=== PATIENT | female | born 1935 | race Caucasian/White ===

== ENCOUNTER 2020-10-31 14:39 | Emergency (ER) | payer OTHER, SELFPAY ==
--- NOTE | 2020-10-31 14:43 | ED_ITS ---
HPI - Psych General Stated Complaint: Crisis Time Seen by Provider: 10/31/20 14:43 Source: patient and EMS Mode of arrival: EMS Limitations: altered mental status (dementia) History of Present Illness complaint: suicidal ideation, feels depressed and anxiety Onset (ago): day(s) (today) Duration: intermittent History of same: Yes Relieving factors: none Exacerbating factors: none Context: other (dementia with behavioral disturbance) Associated psychiatric symptoms: depression and suicidal ideation Associated symptoms: denies other symptoms Treatments prior to arrival: placed on mental health hold Related Data Allergies Allergy/AdvReac Type Severity Reaction Status Date / Time No Known Allergies Allergy Verified 10/31/20 14:43 Review of Systems Review of Systems: ROS unable to be obtained due to dementia [facility] Past Medical History Attestation statement: The following information was validated with the patient. Medical History Dementia Social History Social History (Updated 10/31/20 @ 14:47 by Cortney Alex DO) Smoking Status: Never smoker Use of substances other than those prescribed or required for medical reasons: No Physical Exam Vital Signs: Appearance: Alert. follows commands pleasantly confused. No acute distress. Eyes: Pupils equal, round and reactive to light. ENT: Pharynx normal. Neck: Normal inspection. Neck supple. CVS: Normal heart rate and rhythm. Pulses normal. Respiratory: No respiratory distress. Breath sounds normal. Abdomen: Soft and nontender. Skin: Skin warm and dry. Normal skin color. Normal skin turgor. Extremities: No lower extremity edema. No calf ttp Neuro: Confused at baseline No motor deficit. No sensory deficit. MDM - Psych MDM Narrative Medical decision making narrative: 85 yo female with with longstanding dementia and behavioral issues here with threats of SI, will need basic labs and COVID swab, low susp for self harm in ED
[2020-10-31 15:37] LABS: MANUAL DIFF FLAG NO
[2020-10-31 15:48] LABS: Basophils Percent Auto 0.3 % (0-2); Eosinophils Absolute Auto 0.1 X10*3/uL (0.0-0.4); Eosinophils Percent Auto 1.8 % (0-4); Hematocrit 37.4 % (37-47); Hemoglobin 11.8 g/dl (12.0-16.0); Imm Gran Abs Auto 0.01 X10*3/uL (0.00-0.03); Imm Gran Pct Auto 0.3 % (0.0-0.4); Lymphocytes Absolute Auto 1.4 X10*3/uL (1.2-4.9); Lymphocytes Percent Auto 35.8 % (20-40); Mean Corpuscular HGB Conc 31.6 g/dl (31.0-35.0); Mean Corpuscular Hemoglobin 29.9 pg (27.0-33.0); Mean Corpuscular Volume 94.9 fL (80-98); Mean Platelet Volume 9.3 fL (9.4-12.3); Monocytes Absolute Auto 0.3 X10*3/uL (0.1-1.2); Monocytes Percent Auto 7.8 % (2-11); Neutrophils Absolute Auto 2.2 X10*3/uL (2.0-8.3); Platelet Count 185 X10*3/uL (160-400); Red Blood Count 3.94 X10*6/uL (4.20-5.50); Red Cell Distribution Width 12.3 % (11.0-16.0)
[2020-10-31 16:10] LABS: Alanine Aminotransferase 13 U/L (0-31); Albumin Level 4.1 g/dL (3.5-5.0); Alkaline Phosphatase 63 U/L (39-117); Anion Gap 14 (12-20); Aspartate Amino Transferase 20 U/L (5-31); Bilirubin Direct 0.2 mg/dL (0.0-0.5); Bilirubin Total 0.3 mg/dL (0.0-1.0); Blood Urea Nitrogen 18 mg/dL (9-16); COVID-19 Test Negative (Negative); Calcium 9.6 mg/dL (8.4-10.2); Carbon Dioxide 26 mmol/L (22-29); Chloride 105 mmol/L (96-108); Estimated Glomerular Filt Rate 50; Glucose Random 97 mg/dL (60-115); Potassium 4.4 mmol/l (3.3-5.1); Sodium 141 mmol/L (135-145)
[2020-10-31 18:39] LABS: Magnesium 2.1 mg/dL (1.6-2.6)
== END 2020-11-01 10:01 | disposition still patient (30) ==
LOC: HO.ED 11-01 00:12
PROVIDERS: Emergency Provider Emergency Medicine
DX: F32.9 Major depressive disorder, single episode, unspecified (principal); F01.50 Vascular dementia, unspecified severity, without behavioral disturbance, psychotic disturbance, mood disturbance, and anxiety; R45.851 Suicidal ideations; Z20.828 Contact with and (suspected) exposure to other viral communicable diseases; Z79.899 Other long term (current) drug therapy
CPT/HCPCS: 36415; 80048; 80076; 83735; 85025; 87635; 99283

== ENCOUNTER 2020-10-31 14:58 | Emergency (ER) | payer OTHER, SELFPAY ==
[2020-10-31 15:03] VITALS: BP 130/59; PULSE 71; RESP 16; TEMP 37; O2SAT 98; BMI 36.1
--- NOTE | 2020-10-31 15:09 | ED.PSYCH ---
HPI - Psych General Chief Complaint: Psychiatric Symptoms Stated Complaint: SUICIDAL, NO PLAN Time Seen by Provider: 10/31/20 15:06 Source: patient and EMS Mode of arrival: EMS Limitations: altered mental status (dementia) History of Present Illness HPI Narrative: here from SNF has hx of dementia with behavioral disturbances made some SI statements to staff - sent in on section 12 MD complaint: suicidal ideation Onset (ago): day(s) (today) Duration: intermittent History of same: Yes Relieving factors: none Exacerbating factors: none Context: other (hx of same in past) Associated psychiatric symptoms: suicidal ideation Associated symptoms: denies other symptoms Treatments prior to arrival: placed on mental health hold Related Data Allergies Allergy/AdvReac Type Severity Reaction Status Date / Time No Known Allergies Allergy Verified 10/31/20 15:06 Review of Systems Review of Systems: ROS unable to be obtained due to dementia [facility] Past Medical History Attestation statement: The following information was validated with the patient. 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 Oriented to self and place No acute distress. Eyes: Pupils equal, round and reactive to light. ENT: Pharynx normal. Neck: Normal inspection. Neck supple. CVS: Normal heart rate and rhythm. Pulses normal. Respiratory: No respiratory distress. Breath sounds normal. Abdomen: Soft and nontender. Skin: Skin warm and dry. Normal skin color. Normal skin turgor. Extremities: No lower extremity edema. No calf ttp Neuro: Oriented to self and place, calm and cooperative. No motor deficit. No sensory deficit. Course Course Course Narrative: signed out pending [facility] MDM - Psych MDM Narrative Medical decision making narrative: 85 yo female with dementia and hx of behavioral issues here for reports of making SI statements to staff sent in on section 12 for [facility] consult dispo per results and findings. Discharge Plan Discharge Clinical Impression: Dementia Qualifiers: Dementia type: unspecified type Dementia behavioral disturbance: with behavioral disturbance Qualified Code(s): F03.91 - Unspecified dementia with behavioral disturbance
[2020-10-31 18:30] VITALS: BP 152/66; PULSE 81; RESP 18; TEMP 36.8; O2SAT 100
--- NOTE | 2020-10-31 19:08 | PC.NURSE ---
Used licensed social worker to interview patient about SI. She is confused at times and only able to answer some questions. It was clear that she wanted to harm herself because she is lonely but was not able to verbalize a plan. Staff assigned for observation.
--- NOTE | 2020-10-31 19:38 | PC.NURSE ---
Fax and call made to [facility] at thist time.
--- NOTE | 2020-10-31 20:10 | PC.NURSE ---
[facility] faxed/called/spoke with Nercy/confirmed receipt of referral/ no ETA at this time. Patient confused/tearful, unable to express concern, will continue to monitor.
--- NOTE | 2020-10-31 22:37 | PC.NURSE ---
Patient is evidently disorganized, upset, tearful, and moaning. Refused her HS PO medication, scales inspector called for help no luck patient continued refusing her medication. Will continue to monitor.
--- NOTE | 2020-11-01 07:15 | PC.NURSE ---
Report received from JESSICA Hutchinson. Pt awake, sitting on her bed.
[2020-11-01 08:39] VITALS: BP 96/56; PULSE 71; TEMP 36.2; O2SAT 96
--- NOTE | 2020-11-01 09:19 | PC.NURSE ---
Backroom Associate in- pt offered medications- declined to take them. Pt repeatedly stating 'they will kill me' and 'leave me alone.' Pt reminded that medications are necessary for her health, pt continued to decline them. Pt offered fluids and food w/ systems integration analyst present- pt continued to decline them, repeatedly stating 'leave me alopne.' Attempted to orient pt to place but pt unwilling to listen, requesting to go home.
[2020-11-01 09:52] LABS: Glucose Urine UA NEG (NEG); Leukocyte Esterase Urine TRACE (NEG); Nitrite Urine NEG (NEG); Specific Gravity - Urine 1.025 (1.005-1.025); Urine Blood 2+ (NEG); Urine Ketones NEG (NEG); Urine Protein NEG (NEG-TRACE)
[2020-11-01 09:54] LABS: Appearance Urine CLEAR; Color Urine YELLOW
--- NOTE | 2020-11-01 09:54 | PC.NURSE ---
A Marianna aware that pt is declining medications and food. In to evaluate pt.
[2020-11-01 10:00] VITALS: RESP 16
[2020-11-01 10:11] LABS: Bacteria Urine 1+ /LPF; Hyaline Casts Urine 0-2 /LPF; Mucus Urine 1+ /LPF; Squamous Epithelial Cell Urine TRACE /LPF; WBC Clumps Urine NOTED
[2020-11-01 10:18] LABS: Amphetamine Screen Urine Not Detected (Not Detect); Barbiturates, Urine Not Detected (Not Detect); Benzodiazepines Screen Urine Not Detected (Not Detect); Cannabinoid Screen Urine Not Detected (Not Detect); Cocaine Screen Urine Not Detected (Not Detect); Opiate Screen Urine Not Detected (Not Detect); Phencyclidine Screen Urine Not Detected (Not Detect)
--- NOTE | 2020-11-01 11:59 | PC.NURSE ---
At provider request, pt's emergency contact called w/ bushing and broach operator present. Per contact, Kalpana Mercer, who is pt's niece, pt lived with her and while w/ niece, began to eat non edible items, such as plastic and began to refuse medications. Pt was then transferred to [facility] for care of dementia. Pt has intermittently expressed SI over time. Niece had no suggestions for staff re: helping the pt to accept food or medications.
[2020-11-01 12:00] VITALS: RESP 20
--- NOTE | 2020-11-01 13:08 | PC.NURSE ---
Pt offered lunch and drink. Pt vigorously waves away.
[2020-11-01 14:00] VITALS: RESP 20
--- NOTE | 2020-11-01 14:55 | PC.NURSE ---
Pt out in common area- currently sipping on water, eating osvaldo crackers. Appears a little less agitated.
--- NOTE | 2020-11-01 15:54 | PC.NURSE ---
Pt continues to be less agitated, ate the osvaldo crackers but did not accept a turkey sandwich as offered.
[2020-11-01 16:14] VITALS: BP 123/61; PULSE 94; RESP 16; TEMP 36.8; O2SAT 100
--- NOTE | 2020-11-01 16:37 | PC.NURSE ---
pt resting, resp unlabored.
[2020-11-01 18:00] VITALS: RESP 24
--- NOTE | 2020-11-01 18:48 | PC.NURSE ---
Assisted pt to toilet, but pt unable top void. Pt ate a minimal amount of her dinner. Pt currently in hallway, calling out. Unable to console.
[2020-11-01] MEDS: traZODone HCL 50 MG TABLET PO (20:35)
[2020-11-01] MEDS: QUEtiapine Fumarate 25 MG TABLET 12.5 MG PO (20:35)
[2020-11-01] MEDS: Melatonin 3 MG TABLET PO (20:35)
--- NOTE | 2020-11-01 21:36 | PC.NURSE ---
Patient compliant with HS PO medication, needed lot of prompting, patient has no insight, appetite poor, hydrating not well, patient is on constant supervision for fall risk, will continue to monitor.
[2020-11-02 08:11] VITALS: BP 122/56; PULSE 67; TEMP 36.4; O2SAT 97
[2020-11-02] MEDS: FLUoxetine HCl 20 MG CAPSULE 40 MG PO (10:22)
[2020-11-02] MEDS: Clopidogrel Bisulfate 75 MG TABLET PO (10:22)
[2020-11-02] MEDS: Aspirin Enteric Coated 81 MG TABLET.DR PO (10:22)
[2020-11-02] MEDS: Cholecalciferol (Vitamin D3) 25 MCG TABLET PO (10:22)
--- NOTE | 2020-11-02 11:25 | PC.NURSE ---
patient currently sleeping in room, will continue to monitor.
--- NOTE | 2020-11-02 15:10 | PC.NURSE ---
Report received. Pt asleep in bed at current, no signs of distress, respirations even and unlabored.
[2020-11-02 16:57] VITALS: BP 121/52; PULSE 68; RESP 18; TEMP 36.1; O2SAT 95
[2020-11-02 17:51] LABS: COVID-19 Test Negative (Negative); IDNOW Serial# 9DD0AD1C
--- NOTE | 2020-11-02 19:38 | PC.NURSE ---
Patient mood seems much pleasant, family came to visit, Jennifer Mercer [phone], and Niece's daughter Toma Swanson, , updated patient status as approved by patient, family advised to contact [facility] and provided [facility] business car. Currently in bed seems resting, will continue to monitor.
[2020-11-02 21:45] VITALS: BP 154/68; PULSE 60; RESP 18; TEMP 36.6; O2SAT 97
[2020-11-03 06:21] VITALS: RESP 17
--- NOTE | 2020-11-03 06:59 | PC.NURSE ---
Report recieved. Pt currently sleeping, respirations even and unlabored, in no apparent distress. Pt is inpatient bedsearch.
[2020-11-03 09:06] VITALS: BP 110/50; PULSE 80; RESP 16; TEMP 36.8; O2SAT 95
[2020-11-03] MEDS: Aspirin Enteric Coated 81 MG TABLET.DR PO (09:07)
[2020-11-03] MEDS: FLUoxetine HCl 20 MG CAPSULE 40 MG PO (09:07)
--- NOTE | 2020-11-03 12:28 | MHC.CARE ---
T/w met with [facility] clinician (Milla) after the MSU today. Pts dispo was changed from GeriPsych to SNF bedsearch to be done by CM now. A consult was placed this morning for medication considerations which will remain for the continuity for her return to [facility] or if needed in her bedsearch for SNF placement as pt arrived to [facility] from a SNF placement ie [facility]. ED provider aware of this change and on board. T/w alerted CM of this referral.
--- NOTE | 2020-11-03 13:10 | MHC.CM.ED ---
Patient was in ER due to SI. She has been cleared by [facility] and will return to [facility]. [facility] aware. However, [facility] eval is needed in order for patient to return. Continue to monitor for d/c needs.
--- NOTE | 2020-11-03 16:06 | PC.NURSE ---
[facility] contacted for second time to request copy of eval to be faxed to emergency room.
[2020-11-03 16:56] VITALS: BP 110/66; PULSE 74; RESP 20; TEMP 36.4; O2SAT 95
--- NOTE | 2020-11-03 17:53 | P.CNPS_ITS ---
History of Present Illness Date of Service: 11/03/2020 Chief Complaint: SUICIDAL, NO PLAN Reason for Consult: medication recommendations Requesting physician: Tricia Simms Discussed with referring provider: No Sources of Information: patient interviewed, chart reviewed and crisis/core team assessment reviewed HPI Narrative: Patient is an 85 year old St Helen[place] speaking female with history of dementia currently in area of ED after reportedly making suicidal statements at the SNF where she resides Consult requested to assess for possible medication changes Patient seen in room 2 of area ED. Pleasantly confused and engaged in interview Notes reviewed, patient has been in behavioral control while in ED. Easily redirectable, taking medications--at times with some gentle encouragement, but has been compliant overall. Past Psychiatric History: unknown Medical Evaluation Reviewed: Yes Review of Systems Review of Systems Yes all other systems are reviewed and are negative [facility] Medical History Dementia Diagnostics Vital Signs (24Hr): Vital Signs - 24 hr 11/02/20 21:45 11/03/20 06:21 11/03/20 09:06 Temperature 98 F 98.3 F Pulse Rate 60 80 Respiratory Rate 18 17 16 Blood Pressure 154/68 H 110/50 L Pulse Oximetry 97 95 11/03/20 16:56 Temperature 97.5 F Pulse Rate 74 Respiratory Rate 20 Blood Pressure 110/66 Pulse Oximetry 95 Body Mass Index 36.1 Labs Labs: Laboratory Results - last 48 hr 11/02/20 17:08 COVID-19 (MYRIAM) Negative COVID-19 Clin Com See Note Mental Status Exam Mental Status Exam Patient Appearance: Appropriate Patient Orientation: Person Level of Consciousness: Awake, Disoriented and Alert Patient Behavior: Appropriate and Talkative Mood Description: Calm Affect Description: Calm Ability to Follow Directions: Good Speech Pattern: Clear Hallucinations: None Thought Process: Distracted Thought Content: positive for Longs Judgement: Poor Medications Medications Current Medications Generic Name Dose Route Start Last Admin Trade Name Freq PRN Reason Stop Dose Admin Acetaminophen 650 mg 10/31/20 22:02 Acetaminophen 325 Mg Tablet PO Q4H PRN Pain, Mild Aspirin 81 mg 11/01/20 09:00 11/03/20 09:07 Aspirin Enteric Coated 81 Mg Tablet.Dr PO 81 mg DAILY ATMIE Administration Bisacodyl 10 mg 10/31/20 22:02 Bisacodyl 10 Mg Supp.Rect ID DAILY PRN Constipation Clopidogrel Bisulfate 75 mg 11/01/20 09:00 11/03/20 09:20 Clopidogrel Bisulfate 75 Mg Tablet PO Not Given DAILY TAMIE Fluoxetine HCl 40 mg 11/01/20 09:00 11/03/20 09:07 Fluoxetine Hcl 20 Mg Capsule PO 40 mg DAILY TAMIE Administration Loperamide HCl 2 mg 10/31/20 22:05 Loperamide Hcl 2 Mg Capsule PO TID PRN Diarrhea Melatonin 3 mg 10/31/20 22:15 11/02/20 21:54 Melatonin 3 Mg Tablet PO Not Given BEDTIME TAMIE Nystatin 1 appl 10/31/20 22:02 Nystatin Powder 15 Gm Bottle TOPICAL QSHIFT PRN Rash Protocol Pharmacy Consult 1 each 10/31/20 15:06 Consult Rx Perform Med Rec MISCELLANE ONCE PRN Consult order Quetiapine Fumarate 12.5 mg 10/31/20 22:15 11/02/20 21:54 Quetiapine Fumarate 25 Mg Tablet PO Not Given BEDTIME TAMIE Senna 17.2 mg 10/31/20 22:02 Sennosides 8.6 Mg Tablet PO DAILY PRN Constipation Sodium Biphosphate/Sodium Phosphate 118 ml 10/31/20 22:02 Sodium Phosphate,[place]-Dibasic 133 Ml Enema ID DAILY PRN Constipation Trazodone HCl 50 mg 10/31/20 22:15 11/02/20 21:54 Trazodone Hcl 50 Mg Tablet PO Not Given BEDTIME TAMIE Vitamin D 25 mcg 11/01/20 09:00 11/03/20 09:21 Cholecalciferol (Vitamin D3) 25 Mcg Tablet PO Not Given DAILY [facility] Allergies Allergies Allergy/AdvReac Type Severity Reaction Status Date / Time No Known Allergies Allergy Verified 11/01/20 08:12 Assessment & Plan Assessment & Plan (1) Dementia: Qualifiers: Dementia behavioral disturbance: with behavioral disturbance Dementia type: unspecified type Qualified Code(s): F03.91 - Unspecified dementia with behavioral disturbance Status: Acute Code(s): F03.90 - Unspecified dementia without behavioral disturbance Recommendations: based on chart review, patient interview and collateral from RN in area, no medication recommendations at this time Greater than 50% of the session was spent on counseling and/or coordination of care
--- NOTE | 2020-11-03 18:01 | MHC.CARE ---
CARE Team, at the request of [facility] RN, Victor Hugo, assists with discharge planning, as CM is not available. Earlier today CM noted that a plan was in place for pt to return to [facility], however this usp has not heard of pt. Pt resides at [facility], and they were unaware of plan for pt to return this evening. Alaina, a nursing group art supervisor there reported that cooperative education coordinator is not available and [facility] CM will need to reach out to her tomorrow to coordinate pt's return.
--- NOTE | 2020-11-03 19:00 | PC.NURSE ---
REPORT RECEIVED FROM JESSICA BUTT. PATIENT SLEEPING COMFORTABLY AT THIS TIME, NO ACUTE DISTRESS NOTED. WILL CONTINUE TO MONITOR. CASE MANAGEMENT.
--- NOTE | 2020-11-03 20:27 | PC.NURSE ---
THIS RN ATTEMPTED TO MEDICATE PATIENT WITH SCHEDULED MEDICATIONS, HOWEVER PATIENT REFUSED. RAND TACKER AT BEDSIDE ATTEMPTING TO HELP THIS RN. PATIENT STATES NO, I'M NOT TAKING ANY MORE PILLS, I ALREADY TOOK SOME TODAY. I HAVE ASPIRIN WITH ME. I'M NOT TAKING ANYMORE . OFFERED FOOD AND BEVERAGES AND REFUSED ALL OF THESE WELL. WILL ATTEMPT TO MEDICATE AT A LATER TIME. PT INSISTS ON SITTING IN CHAIR AND TO BE LEFT ALONE AT THIS TIME. WILL CONTINUE TO MONITOR.
[2020-11-03] MEDS: traZODone HCL 50 MG TABLET PO (20:50)
[2020-11-03] MEDS: QUEtiapine Fumarate 25 MG TABLET 12.5 MG PO (20:50)
[2020-11-03 21:03] VITALS: BP 120/63; PULSE 65; RESP 18; TEMP 36.1; O2SAT 97
--- NOTE | 2020-11-03 21:21 | PC.NURSE ---
PATIENT'S NIECE (GERTRUDE JONES) CALLED THIS RN, REQUESTING UPDATES REGARDING PATIENT. GERTRUDE WISHES TO SPEAK WITH CASE MANAGEMENT/MIRROR SILVERER REGARDING PATIENT'S CARE PLAN, WITH TRUCK DRIVER SUPERVISOR NECESSARY...NEITHER PATIENT OR FAMILY SPEAK [place], EGYPTIAN ONLY. GERTRUDE LEFT MULTIPLE PHONE NUMBERS TO CONTACT: PRIMARY #: [phone] SECONDARY #: [phone]
--- NOTE | 2020-11-03 21:30 | PC.NURSE ---
PATIENT TOOK SCHEDULED MEDICATIONS ORDERED AT 20:50 WITH ASSISTANCE FROM MIMI HUANG/ANN. PATIENT REFUSED MELATONIN ONLY. PATIENT NOW SLEEPING COMFORTABLY, NO ACUTE DISTRESS NOTED. WILL CONTINUE TO MONITOR.
[2020-11-03 23:23] VITALS: RESP 17
--- NOTE | 2020-11-04 04:03 | PC.NURSE ---
PATIENT SLEEPING AT THIS TIME. NO ACUTE DISTRESS NOTED. WILL CONTINUE TO MONITOR.
[2020-11-04 04:04] VITALS: RESP 18
[2020-11-04 06:00] VITALS: RESP 16
--- NOTE | 2020-11-04 07:03 | PC.NURSE ---
Report received. Pt currently sleeping, respirations even and unlabored, in no apparent distress. Pt is case management placement.
--- NOTE | 2020-11-04 08:09 | PC.NURSE ---
Pt was noted to have a bucket in her room this morning, bucket was removed, pt then urinated on the floor. Pt redirected to use the bathroom.
[2020-11-04 09:03] VITALS: BP 127/67; PULSE 57; TEMP 37.1; O2SAT 100
[2020-11-04] MEDS: Aspirin Enteric Coated 81 MG TABLET.DR PO (09:23)
[2020-11-04] MEDS: Cholecalciferol (Vitamin D3) 25 MCG TABLET PO (09:23)
[2020-11-04] MEDS: Clopidogrel Bisulfate 75 MG TABLET PO (09:23)
[2020-11-04] MEDS: FLUoxetine HCl 20 MG CAPSULE 40 MG PO (09:23)
--- NOTE | 2020-11-04 10:47 | MHC.CM.ED ---
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 Clinical updates sent via [employer]. Attempted to reachCharisse via telephone at [phone] and [phone] with the help of a telephone truck technician. Left messages at both numbers requesting a call back. Anticipate patient will return to [facility] today. Continue to monitor for d/c needs.
--- NOTE | 2020-11-04 11:48 | MHC.CM.ED ---
Per Piper at [facility], patient can leave ER at 130pm. [facility] booked. Med nec with chart. Patient, Dwaine HAULAGE BOSS and Victor Hugo RN aware. Spoke with patient's niece,Charisse via telephone at [phone] with the help of the telephone hourly sign language interpreter. Gradyolredyllan verbalizes understanding and is agreeable for patient to return. Continue to monitor for d/c needs.
[2020-11-04] MEDS: Acetaminophen 325 MG TABLET 650 MG PO (12:38)
== END 2020-11-04 13:48 | disposition skilled nursing facility (03) ==
PROVIDERS: Emergency Medicine; Nurse Practitioner Primary Care; Emergency Provider Emergency Medicine; PCP Internal Medicine
DX: F03.91 Unspecified dementia, unspecified severity, with behavioral disturbance (principal); R45.851 Suicidal ideations; Z20.828 Contact with and (suspected) exposure to other viral communicable diseases; I10 Essential (primary) hypertension
CPT/HCPCS: 36415; 80307; 81001; 87086; 87635; 99282; 99285

== ENCOUNTER 2020-11-28 04:07 | Emergency (ER) | payer OTHER, SELFPAY ==
--- NOTE | ~2020-11-28 | CT_ITS ---
EXAMINATION: CT HEAD WITHOUT CONTRAST CLINICAL INFORMATION: Headache. COMPARISON: None. TECHNIQUE: Contiguous helical images of the brain were obtained without IV contrast. Multiplanar reconstructions were performed. DLP: 724 mGy-cm. FINDINGS: There are no pathologic extra-axial fluid collections. The lateral, third, fourth ventricles are mildly prominent, though age-appropriate and concordant with the appearance of the sulci. There is no evidence for acute intraparenchymal hemorrhage or infarct. There is neither mass nor mass effect. 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 There is no shift of midline structures. The paranasal sinuses and mastoid air cells are clear. There are no osseous lesions. CT/CT head/brain wo con IMPRESSION: No evidence for acute intracranial injury. Automated exposure control (Care Dose) Adjustment of the mA and/or kv according to patient size (this includes techniques or standardized protocols for targeted exams where dose is matched to indication / reason for exam; i.e. extremities or head).
--- NOTE | ~2020-11-28 | XR_ITS ---
EXAMINATION: CHEST 1 VIEW CLINICAL INFORMATION: Chest pain. COMPARISON: None. TECHNIQUE: An AP view of the chest is provided. FINDINGS: The cardiac silhouette is not enlarged. The mediastinal and hilar contours are unremarkable. There are neither pleural effusions nor pneumothoraces. There is a faint focus of hazy opacification within the right midlung. The osseous structures are unremarkable. XR/XR chest 1V IMPRESSION: Seen nonspecific focus of hazy opacification within the right midlung. Recommendation is for a followup chest series to be obtained following treatment and/or resolution of symptoms to assure resolution of this appearance.
[2020-11-28 04:18] VITALS: BP 163/93; BP 164/68; PULSE 68; PULSE 72; RESP 20; TEMP 36.6; O2SAT 98; BMI 29.8
--- NOTE | 2020-11-28 04:25 | PC.NURSE ---
MD at bedside for primary eval. natural resource technician at bedside for EKG. Plan for Covid swab and labs.
--- NOTE | 2020-11-28 04:28 | ECG_ITS ---
Test Reason : ABD PAIN Blood Pressure : / mmHG Vent. Rate : 064 BPM Atrial Rate : 064 BPM P-R Int : 162 ms QRS Dur : 112 ms QT Int : 436 ms P-R-T Axes : 032 -42 124 degrees QTc Int : 449 ms Normal sinus rhythm Left axis deviation Left ventricular hypertrophy with repolarization abnormality Abnormal ECG No previous ECGs available Referred By: Brian Warren Electronically Signed By:MARIALUISA SEN
[2020-11-28 04:56] LABS: Basophils Percent Auto 0.2 % (0-2); Eosinophils Absolute Auto 0.1 X10*3/uL (0.0-0.4); Eosinophils Percent Auto 1.7 % (0-4); Hemoglobin 12.7 g/dl (12.0-16.0); Imm Gran Abs Auto 0.01 X10*3/uL (0.00-0.03); Imm Gran Pct Auto 0.2 % (0.0-0.4); Lymphocytes Absolute Auto 2.4 X10*3/uL (1.2-4.9); Mean Corpuscular HGB Conc 31.8 g/dl (31.0-35.0); Mean Corpuscular Hemoglobin 29.5 pg (27.0-33.0); Mean Corpuscular Volume 92.8 fL (80-98); Mean Platelet Volume 9.1 fL (9.4-12.3); Monocytes Absolute Auto 0.3 X10*3/uL (0.1-1.2); Monocytes Percent Auto 6.6 % (2-11); Neutrophils Absolute Auto 1.9 X10*3/uL (2.0-8.3); Neutrophils Percent Auto 40.3 % (45-73); Platelet Count 199 X10*3/uL (160-400); Red Blood Count 4.31 X10*6/uL (4.20-5.50); Red Cell Distribution Width 12.5 % (11.0-16.0); White Blood Count 4.7 X10*3/uL (4.8-10.8)
[2020-11-28 04:57] LABS: MANUAL DIFF FLAG NO
--- NOTE | 2020-11-28 05:01 | PC.NURSE ---
CXR at bedside.
[2020-11-28 05:09] LABS: COVID-19 Test Negative (Negative)
--- NOTE | 2020-11-28 05:10 | ED_ITS ---
HPI - General Adult General Chief complaint: General Medical Stated complaint: Chest pain Time Seen by Provider: 11/28/20 04:27 Source: patient, EMS and medical interpreter Mode of arrival: EMS Limitations: no limitations History of Present Illness HPI narrative: 85-year-old female in [facility] with history of d poly in the emergency department patient has nonspecific generalized body ache and headache, patient declined chest pain or recent complaint of chest pain. According to [facility] nurse report patient around 03:00 o'clock in the morning she was complaining of chest pain and headache. Patient is unable to confirm the history because history of dementia. Overall patient appears in no distress, patient is talking about her hope to go back home [place] and enjoys a nice country and the nice weather. Related Data Home Medications Medication Instructions Recorded Confirmed acetaminophen 650 mg PO Q4H PRN 10/31/20 10/31/20 aspirin 81 mg PO DAILY 10/31/20 10/31/20 bisacodyl 10 mg PA DAILY PRN 10/31/20 10/31/20 cholecalciferol (vitamin D3) 25 mcg PO DAILY 10/31/20 10/31/20 clopidogrel 75 mg PO DAILY 10/31/20 10/31/20 fluoxetine 40 mg PO DAILY 10/31/20 10/31/20 loperamide 2 mg PO TID PRN 10/31/20 10/31/20 melatonin 5 mg PO BEDTIME 10/31/20 10/31/20 nystatin 1 appl TOPICAL QSHIFT PRN 10/31/20 10/31/20 quetiapine 12.5 mg PO BEDTIME 10/31/20 10/31/20 sennosides [senna] 17.2 mg PO DAILY PRN 10/31/20 10/31/20 sodium phosphates [Fleet Enema] 118 ml PA DAILY PRN 10/31/20 10/31/20 trazodone 50 mg PO BEDTIME 10/31/20 10/31/20 Allergies Allergy/AdvReac Type Severity Reaction Status Date / Time No Known Allergies Allergy Verified 11/01/20 08:12 Review of Systems Review of Systems: Yes Unobtainable due to mental condition (Chronic dementia.) [facility] Past Medical History Medical History 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 Blood pressure hypertensive. Heart rate normal. Respiration rate normal. Temperature normal. Oxygen saturation normal. Appearance: Alert, No acute distress. Head: Normal external exam. Normocephalic. Atraumatic. No Hendrickson signs noted. No raccoon eyes noted Eyes: PERRLA. EOMI. Conjunctiva and sclera normal. Eyelids normal. ENT: TM's Normal. Pharynx normal. Uvula midline. Moist mucous membranes. No trismus noted. No drooling noted. No muffled voice noted. Neck: Normal inspection. Neck supple. FROM. No adenopathy. Thyroid Normal. No meningeal signs. No neck mass noted. CVS: Normal heart rate and rhythm. Heart sound normal. No murmurs noted. Pulses normal throughout. Respiratory: No respiratory distress. Painless inspiration. Breath sounds normal. No wheezes/rales/rhonchi noted. Chest nontender. No accessory muscle usage noted or decreased air movement noted. Abdomen: Soft and nontender. Bowel sounds normal in all 4 quadrants. No distention noted. No organomegaly noted. No visible injury noted. Back: No CVA tenderness. Full range of motion noted. Skin: Skin warm and dry. Normal skin color. Normal skin turgor. No rashes/lesions/lacerations noted. Extremities: No lower extremity edema. Extremities exhibit normal range of motion. Extremities nontender. Neuro: No motor deficit. No sensory deficit. Medical Decision Making Lab Data Lab results reviewed: Yes I reviewed the patient's lab results. Result diagrams: 11/28/20 04:37 11/28/20 04:37 Labs: Lab Results 11/28/20 11/28/20 11/28/20 Range/Units 04:37 04:37 04:37 WBC 4.7 L (4.8-10.8) X10*3/uL RBC 4.31 (4.20-5.50) X10*6/uL Hgb 12.7 (12.0-16.0) g/dl Hct 40.0 (37-47) % MCV 92.8 (80-98) fL MCH 29.5 (27.0-33.0) pg MCHC 31.8 (31.0-35.0) g/dl RDW 12.5 (11.0-16.0) % Plt Count 199 (160-400) X10*3/uL MPV 9.1 L (9.4-12.3) fL Immature Gran % (Auto) 0.2 (0.0-0.4) % Neut % (Auto) 40.3 L (45-73) % Lymph % (Auto) 51.0 H (20-40) % [place] % (Auto) 6.6 (2-11) % Eos % (Auto) 1.7 (0-4) % Baso % (Auto) 0.2 (0-2) % Lymph # (Auto) 2.4 (1.2-4.9) X10*3/uL [place] # (Auto) 0.3 (0.1-1.2) X10*3/uL Eos # (Auto) 0.1 (0.0-0.4) X10*3/uL Baso # (Auto) 0.0 (0.0-0.2) X10*3/uL Abs Immat Gran (auto) 0.01 (0.00-0.03) X10*3/uL Absolute Neuts (auto) 1.9 L (2.0-8.3) X10*3/uL Absolute Nucleated RBC 0.000 (0.0-0.012) X10*3/uL Nucleated RBC % (auto) 0.0 (0.0-0.2) /100WBC Sodium 140 (135-145) mmol/L Potassium 4.2 (3.3-5.1) mmol/L Chloride 107 (96-108) mmol/L Carbon Dioxide 24 (22-29) mmol/L Anion Gap 13 (12-20) BUN 21 H (9-16) mg/dL Creatinine 1.03 (0.5-1.4) mg/dL Estim Creat Clear Calc 35.3 Estimated GFR 51 Random Glucose 84 (60-115) mg/dL Calcium 9.3 (8.4-10.2) mg/dL Total Bilirubin 0.4 (0.0-1.0) mg/dL Direct Bilirubin 0.2 (0.0-0.5) mg/dL AST 17 (5-31) U/L ALT 10 (0-31) U/L Alkaline Phosphatase 68 (39-117) U/L Troponin I High Sens 22.2 H (<3.5-17.0) ng/L Total Protein 7.0 (6.5-8.0) g/dL Albumin 3.9 (3.5-5.0) g/dL Lipase 19 (8-78) U/L Urine Color Urine Appearance Urine pH (5.0-8.0) Ur Specific [place] (1.005-1.025) Urine Protein (NEG-TRACE) MG/DL Urine Glucose (UA) (NEG) MG/DL Urine Ketones (NEG) MG/DL Urine Blood (NEG) Urine Nitrite (NEG) Ur Leukocyte Esterase (NEG) COVID-19 (MYRIAM) (Negative) COVID-19 Clin Com 11/28/20 11/28/20 Range/Units 04:37 05:36 WBC (4.8-10.8) X10*3/uL RBC (4.20-5.50) X10*6/uL Hgb (12.0-16.0) g/dl Hct (37-47) % MCV (80-98) fL MCH (27.0-33.0) pg MCHC (31.0-35.0) g/dl RDW (11.0-16.0) % Plt Count (160-400) X10*3/uL MPV (9.4-12.3) fL Immature Gran % (Auto) (0.0-0.4) % Neut % (Auto) (45-73) % Lymph % (Auto) (20-40) % [place] % (Auto) (2-11) % Eos % (Auto) (0-4) % Baso % (Auto) (0-2) % Lymph # (Auto) (1.2-4.9) X10*3/uL [place] # (Auto) (0.1-1.2) X10*3/uL Eos # (Auto) (0.0-0.4) X10*3/uL Baso # (Auto) (0.0-0.2) X10*3/uL Abs Immat Gran (auto) (0.00-0.03) X10*3/uL Absolute Neuts (auto) (2.0-8.3) X10*3/uL Absolute Nucleated RBC (0.0-0.012) X10*3/uL Nucleated RBC % (auto) (0.0-0.2) /100WBC Sodium (135-145) mmol/L Potassium (3.3-5.1) mmol/L Chloride (96-108) mmol/L Carbon Dioxide (22-29) mmol/L Anion Gap (12-20) BUN (9-16) mg/dL Creatinine (0.5-1.4) mg/dL Estim Creat Clear Calc Estimated GFR Random Glucose (60-115) mg/dL Calcium (8.4-10.2) mg/dL Total Bilirubin (0.0-1.0) mg/dL Direct Bilirubin (0.0-0.5) mg/dL AST (5-31) U/L ALT (0-31) U/L Alkaline Phosphatase (39-117) U/L Troponin I High Sens (<3.5-17.0) ng/L Total Protein (6.5-8.0) g/dL Albumin (3.5-5.0) g/dL Lipase (8-78) U/L Urine Color YELLOW Urine Appearance CLEAR Urine pH 6.0 (5.0-8.0) Ur Specific [place] 1.020 (1.005-1.025) Urine Protein NEG (NEG-TRACE) MG/DL Urine Glucose (UA) NEG (NEG) MG/DL Urine Ketones NEG (NEG) MG/DL Urine Blood 2+ H (NEG) Urine Nitrite NEG (NEG) Ur Leukocyte Esterase NEG (NEG) COVID-19 (MYRIAM) Negative (Negative) COVID-19 Clin Com See Note Imaging Data Chest x-ray: Radiologist's impression: The cardiac silhouette is not enlarged. The mediastinal and hilar contours are unremarkable. There are neither pleural effusions nor pneumothoraces. There is a faint focus of hazy opacification within the right midlung. The osseous structures are unremarkable. CT scan - head: Radiologist's impression: No evidence for acute intracranial injury. ECG Data Interpretation: Normal sinus rhythm at 64 beats per minute, left axis deviation, LVH, diffuse T-wave flattening and inversion appear nonspecific, unable to obtain old EKG. Discharge Plan Discharge Clinical Impression: Dementia, Headache, Chest pain Instructions: Chest Pain (ED), General Headache (ED) Prescriptions: No Action acetaminophen 325 mg Tablet 650 mg PO Q4H PRN (Reason: Pain, Mild) RF: 0 loperamide 2 mg Tablet 2 mg PO TID PRN (Reason: Diarrhea) RF: 0 clopidogrel 75 mg Tablet 75 mg PO DAILY RF: 0 aspirin 81 mg Tablet,Delayed Release (Dr/Ec) 81 mg PO DAILY RF: 0 bisacodyl 10 mg Suppository 10 mg PA DAILY PRN (Reason: Constipation) RF: 0 Fleet Enema 19-7 gram/118 mL Enema 118 ml PA DAILY PRN (Reason: Constipation) RF: 0 nystatin 100,000 unit/gram Powder 1 appl TOPICAL QSHIFT PRN (Reason: Rash) RF: 0 cholecalciferol (vitamin D3) 25 mcg (1,000 unit) Capsule 25 mcg PO DAILY RF: 0 melatonin 5 mg Tablet 5 mg PO BEDTIME RF: 0 quetiapine 25 mg Tablet 12.5 mg PO BEDTIME RF: 0 fluoxetine 40 mg Capsule 40 mg PO DAILY RF: 0 sennosides [senna] 8.6 mg Tablet 17.2 mg PO DAILY PRN (Reason: Constipation) RF: 0 trazodone 50 mg Tablet 50 mg PO BEDTIME RF: 0 Referrals: Physician,Unknown [Primary Care Provider] - 2 days
--- NOTE | 2020-11-28 05:11 | PC.NURSE ---
Pt returns from CT on hospital bed without incident.
[2020-11-28 05:23] LABS: Troponin-I High Sensitivity 22.2 ng/L (<3.5-17.0)
[2020-11-28 05:24] LABS: Alanine Aminotransferase 10 U/L (0-31); Albumin Level 3.9 g/dL (3.5-5.0); Alkaline Phosphatase 68 U/L (39-117); Anion Gap 13 (12-20); Aspartate Amino Transferase 17 U/L (5-31); Bilirubin Direct 0.2 mg/dL (0.0-0.5); Bilirubin Total 0.4 mg/dL (0.0-1.0); Blood Urea Nitrogen 21 mg/dL (9-16); Calcium 9.3 mg/dL (8.4-10.2); Carbon Dioxide 24 mmol/L (22-29); Chloride 107 mmol/L (96-108); Creatinine Clr Calc Pharmacy 35.3; Estimated Glomerular Filt Rate 51; Glucose Random 84 mg/dL (60-115); Lipase 19 U/L (8-78); Potassium 4.2 mmol/L (3.3-5.1); Sodium 140 mmol/L (135-145)
[2020-11-28 05:31] VITALS: BP 157/73; PULSE 69; RESP 16
[2020-11-28 05:42] LABS: Appearance Urine CLEAR; Color Urine YELLOW; Glucose Urine UA NEG (NEG); Leukocyte Esterase Urine NEG (NEG); Nitrite Urine NEG (NEG); Urine Blood 2+ (NEG); Urine Ketones NEG (NEG); Urine Protein NEG (NEG-TRACE)
--- NOTE | 2020-11-28 05:42 | PC.NURSE ---
UA obtained via straight cath. UA sent for analysis. Pt resting in bed, VSS at this time. Plan for 0745 Troponin. Continue to monitor.
[2020-11-28 05:47] LABS: WBC Urine 0-2 /HPF (0-4)
[2020-11-28 05:48] LABS: Bacteria Urine TRACE /LPF; Squamous Epithelial Cell Urine TRACE /LPF
--- NOTE | 2020-11-28 06:27 | PC.NURSE ---
SNF updated regarding pt condition and plan of care.
[2020-11-28 06:40] VITALS: BP 151/72; PULSE 62; RESP 20; O2SAT 94
[2020-11-28 07:42] VITALS: BP 158/70; PULSE 64; RESP 16; O2SAT 95
[2020-11-28 08:31] LABS: Troponin-I High Sensitivity 22.7 ng/L (<3.5-17.0)
--- NOTE | 2020-11-28 08:59 | PC.NURSE ---
report given to Nasima at [facility], pt to return back to [facility]
== END 2020-11-28 09:50 | disposition skilled nursing facility (03) ==
PROVIDERS: Emergency Provider Emergency Medicine
DX: R07.9 Chest pain, unspecified (principal); R51.9 Headache, unspecified; F03.90 Unspecified dementia, unspecified severity, without behavioral disturbance, psychotic disturbance, mood disturbance, and anxiety; Z20.822 Contact with and (suspected) exposure to COVID-19; I10 Essential (primary) hypertension
CPT/HCPCS: 36415; 70450; 71045; 80048; 80076; 81001; 83690; 84484; 85025; 87635; 93005; 99284

== ENCOUNTER 2022-04-26 17:39 | Emergency (ER) | payer OTHER, SELFPAY ==
--- NOTE | ~2022-04-26 | XR_ITS ---
EXAMINATION: XR HIP, LEFT CLINICAL INFORMATION: Left hip pain COMPARISON: None TECHNIQUE: Two views of the left hip. FINDINGS: Bones and soft tissues are normal. No fracture. Alignment is anatomic. Hip joint space is maintained. XR/XR hip LT w PEL1V IMPRESSION: Unremarkable left hip exam.
--- NOTE | ~2022-04-26 | CT_ITS ---
EXAMINATION: CT HEAD WITHOUT CONTRAST CLINICAL INFORMATION: Fall and head injury. COMPARISON: CT brain 11/28/2020. TECHNIQUE: Contiguous axial imaging was performed from the skull base to vertex without intravenous administration of contrast. This CT examination was performed using dose optimization techniques as appropriate, variously including the following: *Automated exposure control *Adjustment of mA and/or kV according to patient size (this includes techniques or standardized protocols for targeted exams where dose is matched to indication/reason for exam; i.e. extremities or head) *Use of iterative reconstruction technique DLP: 1258 mGy-cm FINDINGS: There is an acute localized hemorrhage of the right posterior quadrigeminal cistern on axial image 08/02. There is no mass effect. There are no additional areas of hyperdensity to suspect additional bleed.. The ventricles are are enlarged in size and so other cortical sulci. There is diffuse thickening and calcification of the tentorium similar to previous CT study from dec 11. There is diffuse attenuation of brain parenchyma and the periventrical white matter in both cerebral hemispheres but no mass effect seen. There is extensive calcification of the interhemispheric dura. There is no calvarial abnormality seen. There is likely right occipital scalp hematoma. The mastoid air cells and visualized portions of the paranasal sinuses are well aerated. CT/CT head/brain wo con IMPRESSION: Acute intracranial bleed right posterior quadrigeminal cistern. There is no hyperdense mass or bleed seen on the previous study 11/28/2020. The bleeding could be secondary to trauma with likely underlying lesion such as aneurysm or AVM. There is moderate thickening of the tentorium and calcification similar to previous study. Also visualized are interhemispheric dural calcification. Moderate cerebral volume loss with chronic small vessel ischemic changes. Small right occipital scalp hematoma without calvarial fracture. Results were immediately called to ER Dr. Warren by phone at 7:00 PM
--- NOTE | ~2022-04-26 | CT_ITS ---
EXAMINATION: CT CERVICAL SPINE WITHOUT CONTRAST CLINICAL INFORMATION: Fall and pain. COMPARISON: None TECHNIQUE: Axial 3 mm thin and reformatted 2 mm thin sagittal and coronal images of cervical spine were obtained. This CT examination was performed using dose optimization techniques as appropriate, variously including the following: *Automated exposure control *Adjustment of mA and/or kV according to patient size (this includes techniques or standardized protocols for targeted exams where dose is matched to indication/reason for exam; i.e. extremities or head) *Use of iterative reconstruction technique DLP: 421 mGy-cm FINDINGS: On sagittal reconstructed images there is normal cervical lordosis. The vertebral heights are normal. There is mild anterior listhesis C3 over C4 and C4-C5. Rest of the alignment is normal. There is loss of C5-C6 and C6-C7 disc heights with mild ventral and posterior spondylosis. The craniovertebral junction and the C1-C2 alignment is normal. There is no visible acute fracture, dislocation or subluxation seen. There is moderate left C3-C4 and C4-C5 C4-C5 facet joint arthropathy. No lytic or sclerotic process seen. The prevertebral soft tissues are normal. CT/CT cervical spine wo con IMPRESSION: There are degenerative disc changes C5-C6 and C6-C7 disc levels with ventral and posterior spondylosis. There is moderate left C3-C4 facet joint arthropathy. No visible acute fracture or dislocation seen. Fleischner guidelines were followed.
--- NOTE | ~2022-04-26 | XR_ITS ---
EXAMINATION: XR CHEST CLINICAL INFORMATION: Fall with intracranial bleed COMPARISON: Chest 11/28/2020 TECHNIQUE: Frontal view of the chest was obtained. FINDINGS: No significant abnormality is noted involving the heart, lungs, mediastinum, bony thorax or soft tissues. XR/XR chest 1V IMPRESSION: Unremarkable chest examination.
[2022-04-26 17:48] VITALS: BP 150/80; BP 190/73; PULSE 70; PULSE 71; RESP 16; TEMP 37.1; O2SAT 95; O2SAT 98; BMI 34.2
--- NOTE | 2022-04-26 18:10 | ED_ITS ---
HPI - Fall General Chief Complaint: Fall Stated Complaint: Fall Time Seen by Provider: 04/26/22 18:04 Source: patient, EMS and packaging specialist Mode of arrival: EMS Limitations: other (Dimension) History of Present Illness HPI Narrative: 85 years old female is a [facility] resident with history of dementia came in for evaluation after a fall at the [facility]. Patient is limited historian because of the dementia, however patient stated that she walked to the bathroom at the [facility] had a bowel movement when she got out of the toilet she felt dizzy and fell backward hitting the head on the toilet, patient do not remember if she lost consciousness from above patient is complaining of for headache 07/30 which is been constant since she fell, no nausea or vomiting story is matching with EMS/[facility] nurse story Physical exam is revealing right occipital pump and neck pain with left hip pain. Related Data Home Medications Medication Instructions Recorded Confirmed acetaminophen 325 mg tablet 650 mg PO Q4H PRN Pain, Mild 10/31/20 10/31/20 aspirin 81 mg tablet,delayed 81 mg PO DAILY 10/31/20 10/31/20 release bisacodyl 10 mg rectal suppository 10 mg VT DAILY PRN Constipation 10/31/20 10/31/20 cholecalciferol (vitamin D3) 25 25 mcg PO DAILY 10/31/20 10/31/20 mcg (1,000 unit) capsule clopidogrel 75 mg tablet 75 mg PO DAILY 10/31/20 10/31/20 fluoxetine 40 mg capsule 40 mg PO DAILY 10/31/20 10/31/20 loperamide 2 mg tablet 2 mg PO TID PRN Diarrhea 10/31/20 10/31/20 melatonin 5 mg tablet 5 mg PO BEDTIME 10/31/20 10/31/20 nystatin 100,000 unit/gram topical 1 appl topical QSHIFT PRN Rash 10/31/20 10/31/20 powder quetiapine 25 mg tablet 12.5 mg PO BEDTIME 10/31/20 10/31/20 sennosides 8.6 mg tablet (senna) 17.2 mg PO DAILY PRN Constipation 10/31/20 10/31/20 sodium phosphates 19 gram-7 118 ml VT DAILY PRN Constipation 10/31/20 10/31/20 gram/118 mL enema (Fleet Enema) trazodone 50 mg tablet 50 mg PO BEDTIME 10/31/20 10/31/20 Allergies Allergy/AdvReac Type Severity Reaction Status Date / Time No Known Allergies Allergy Verified 11/01/20 08:12 Review of Systems Review of Systems: All other systems are reviewed and are negative Constitutional: Reports as per HPI and Reports no additional constitutional complaints Eyes: Reports as per HPI and Reports no additional eye complaints Reports system reviewed and no additional complaints, except as documented Cardiovascular: Reports as per HPI and Reports no additional cardiovascular complaints Respiratory: Reports as per HPI and Reports no additional respiratory complaints Gastrointestinal: Reports as per HPI and Reports no additional gastrointestinal complaints Genitourinary: Reports no additional female genitourinary complaints Musculoskeletal: Reports no additional musculoskeletal complaints Skin/Breast: Reports system reviewed and no additional complaints, except as docu Psychiatric: Reports no additional psychiatric complaints Endocrine: Reports no additional endocrine complaints Hematologic/Lymphatic: Reports no additional hematologic/lymphatic complaints Allergic/Immunologic: Reports no additional allergic/immunologic complaints Reports system reviewed and no additional complaints, except as documented and Reports Abnormal speech present [facility] Past Medical History Medical History 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 Blood pressure elevated. Heart rate normal. Respiration rate normal. Temperature normal. Oxygen saturation normal. Appearance: No acute distress. Patient is awake and alert and oriented to place, person and event but not to time. Head: Normal external exam. Normocephalic. 5 x 5 cm left occipital hematoma, otherwise no bleeding.. No Hendrickson signs noted. No raccoon eyes noted Eyes: PERRLA. EOMI. Conjunctiva and sclera normal. Eyelids normal. ENT: TM's Normal. Pharynx normal. Uvula midline. Moist mucous membranes. No trismus noted. No drooling noted. No muffled voice noted. Neck: Normal inspection. Neck supple. FROM. No adenopathy. Thyroid Normal. No meningeal signs. No neck mass noted. CVS: Normal heart rate and rhythm. Heart sound normal. No murmurs noted. Pulses normal throughout. Respiratory: No respiratory distress. Painless inspiration. Breath sounds nor mal. No wheezes/rales/rhonchi noted. Chest nontender. No accessory muscle usage noted or decreased air movement noted. Abdomen: Soft and nontender. Bowel sounds normal in all 4 quadrants. No distent ion noted. No organomegaly noted. No visible injury noted. Back: No CVA tenderness. Full range of motion noted. Skin: Skin warm and dry. Normal skin color. Normal skin turgor. No rashes/lesions/lacerations noted. Extremities: No lower extremity edema. Extremities exhibit normal range of motion. Extremities nontender. Neuro: Cranial nerve exam: II-XII are grossly intact No motor deficit. No sensory deficit. Reflexes normal. Course Course Course Narrative: Assessment and plan. 87-year-old female status post fall sustained an intracranial bleed with no midline shift. Case discussed with Dr. Sandoval at the trauma service at [facility] who accepted the patient for further evaluation. Initial blood pressure was high patient was given labetalol blood pressure now is 188/79. MDM - Fall Medical Records Attestation: I reviewed the patient's medical records. Imaging Data Head CT: Attestation: I personally reviewed and interpreted this imaging study as follows: Radiologist's impression: Acute intracranial bleed right posterior quadrigeminal cistern. There is no hyperdense mass or bleed seen? on the previous study 11/28/2020. The bleeding could be secondary to trauma with likely underlying lesion such as aneurysm or AVM. ? There is moderate thickening of the tentorium and calcification similar to previous study. Also visualized are interhemispheric dural calcification. ? Moderate cerebral volume loss with chronic small vessel ischemic changes. ? Small right occipital scalp hematoma without calvarial fracture. ? Cervical spine CT: Attestation: I personally reviewed and interpreted this imaging study as follows: Radiologist's impression: There are degenerative disc changes C5-C6 and C6-C7 disc levels with ventral and posterior spondylosis. There is moderate left C3-C4 facet joint arthropathy. ?No visible acute fracture or dislocation seen. ? Chest x-ray: Attestation: I personally reviewed and interpreted this imaging study as follows: Radiologist's impression: Unremarkable chest examination Critical Care Time Critical Care Time Critical Care Time: Yes Total Critical Care Time: 60 Attestation: I spent 60 minutes providing critical care service to the patient, this including time spent at the bedside to evaluate the patient, reassess the patient, monitoring vital signs, review labs, and radiographic studies, counseling the patient/family, discussing the case with consultants, disposition/transferring the patient. Discharge Plan Discharge Clinical Impression: Fall, Intracranial bleed Patient Disposition: [facility] Transfer Details: to ED. Prescriptions: No Action acetaminophen 325 mg Tablet 650 mg PO Q4H PRN (Reason: Pain, Mild) loperamide 2 mg Tablet 2 mg PO TID PRN (Reason: Diarrhea) clopidogrel 75 mg Tablet 75 mg PO DAILY aspirin 81 mg Tablet,Delayed Release (Dr/Ec) 81 mg PO DAILY bisacodyl 10 mg Suppository 10 mg VT DAILY PRN (Reason: Constipation) Rx Instructions: USE IF SENNA IS NOT EFFECTIVE Fleet Enema 19-7 gram/118 mL Enema 118 ml VT DAILY PRN (Reason: Constipation) nystatin 100,000 unit/gram Powder 1 appl TOPICAL QSHIFT PRN (Reason: Rash) Rx Instructions: APPLY TO RED AREAS OF GROIN AND SKIN FOLDS EVERY SHIFT NEEDED cholecalciferol (vitamin D3) 25 mcg (1,000 unit) Capsule 25 mcg PO DAILY melatonin 5 mg Tablet 5 mg PO BEDTIME quetiapine 25 mg Tablet 12.5 mg PO BEDTIME fluoxetine 40 mg Capsule 40 mg PO DAILY sennosides [senna] 8.6 mg Tablet 17.2 mg PO DAILY PRN (Reason: Constipation) trazodone 50 mg Tablet 50 mg PO BEDTIME
--- NOTE | 2022-04-26 18:41 | ECG_ITS ---
Test Reason : AMS Blood Pressure : / mmHG Vent. Rate : 071 BPM Atrial Rate : 071 BPM P-R Int : 190 ms QRS Dur : 116 ms QT Int : 406 ms P-R-T Axes : 050 -43 115 degrees QTc Int : 441 ms Normal sinus rhythm Left axis deviation Left ventricular hypertrophy with QRS widening and repolarization abnormality ( R in aVL , Benito product , Romhilt-Desir ) Abnormal ECG When compared with ECG of 28-NOV-2020 04:28, T wave inversion less evident in Anterior leads Referred By: Brian Warren Electronically Signed By:Michael Asif
[2022-04-26 18:56] VITALS: BP 188/79; PULSE 76; RESP 24; O2SAT 95
[2022-04-26 19:46] LABS: COVID-19 Test Negative (Negative)
[2022-04-26 19:56] LABS: MANUAL DIFF FLAG NO
[2022-04-26 19:59] LABS: Basophils Percent Auto 0.2 % (0-2); Eosinophils Percent Auto 0.6 % (0-4); Hematocrit 31.6 % (37.0-47.0); Hemoglobin 10.3 g/dl (12.0-16.0); Imm Gran Abs Auto 0.03 X10*3/uL (0.00-0.03); Imm Gran Pct Auto 0.5 % (0.0-0.4); Lymphocytes Absolute Auto 1.8 X10*3/uL (1.2-4.9); Lymphocytes Percent Auto 27.3 % (20-40); Mean Corpuscular HGB Conc 32.6 g/dl (31.0-35.0); Mean Corpuscular Hemoglobin 30.8 pg (27.0-33.0); Mean Corpuscular Volume 94.6 fL (80.0-98.0); Monocytes Absolute Auto 0.4 X10*3/uL (0.1-1.2); Monocytes Percent Auto 5.7 % (2-11); Neutrophils Absolute Auto 4.2 x10*3/uL (2.0-8.3); Neutrophils Percent Auto 65.7 % (45-73); Platelet Count 154 X10*3/uL (160-400); Red Blood Count 3.34 X10*6/uL (4.20-5.50); Red Cell Distribution Width 13.2 % (11.0-16.0); White Blood Count 6.4 X10*3/uL (4.8-10.8)
[2022-04-26 20:19] LABS: INTERNATIONAL NORM RATIO 1.3 (0.9-1.1); Prothrombin Time 14.7 SEC (10.0-13.1)
[2022-04-26 20:20] LABS: Troponin-I High Sensitivity 31.7 ng/L (<3.5-17.0)
[2022-04-26 20:22] LABS: Partial Thromboplastin Time 33.1 SEC (24.1-38.0)
== END 2022-04-26 20:07 | disposition short-term general hospital (02) ==
PROVIDERS: Emergency Provider Emergency Medicine
DX: S06.309A Unspecified focal traumatic brain injury with loss of consciousness of unspecified duration, initial encounter (principal); M54.2 Cervicalgia; M25.552 Pain in left hip; R51.9 Headache, unspecified; W01.0XXA Fall on same level from slipping, tripping and stumbling without subsequent striking against object, initial encounter; Y93.9 Activity, unspecified; Y92.129 Unspecified place in nursing home as the place of occurrence of the external cause; Y99.9 Unspecified external cause status; Z79.899 Other long term (current) drug therapy; Z20.822 Contact with and (suspected) exposure to COVID-19
CPT/HCPCS: 36415; 70450; 71045; 72125; 73502; 80048; 80076; 83690; 84484; 85025; 85610; 85730; 87635; 93005; 99285

== ENCOUNTER 2024-04-04 11:50 | Emergency (ER) | payer MEDICARE, MEDICAID, SELFPAY ==
--- NOTE | ~2024-04-04 | CT_ITS ---
EXAMINATION: CT ABDOMEN AND PELVIS WITHOUT CONTRAST CLINICAL INFORMATION: Constipation without bowel movement COMPARISON: None available. TECHNIQUE: Multidetector volumetric imaging was performed from the superior aspect of the liver through the pubic symphysis. Sagittal and coronal reformatted images were obtained on the technologist's workstation. This CT examination was performed using dose optimization techniques as appropriate, variously including the following: *Automated exposure control *Adjustment of mA and/or kV according to patient size (this includes techniques or standardized protocols for targeted exams where dose is matched to indication/reason for exam; i.e. extremities or head) *Use of iterative reconstruction technique DLP: 517 mGy-cm FINDINGS: Evaluation of solid organs, vascular structures, and bowel wall limited in the absence of intravenous contrast. LUNG BASES: Multivessel coronary artery calcifications present. Left basilar linear atelectasis or scarring. Visualized lung bases otherwise unremarkable. LIVER AND BILIARY TREE: Unremarkable. GALLBLADDER: Cholelithiasis without evidence for acute cholecystitis. PANCREAS: Diffuse pancreatic parenchymal atrophy. Pancreas otherwise unremarkable. SPLEEN: Unremarkable. ADRENAL GLANDS: Mild thickening of the left adrenal gland without discrete nodule. KIDNEYS AND URETERS: Inferior pole right renal simple cyst for which no follow-up imaging is recommended. No hydronephrosis or urinary tract calculi identified. GASTROINTESTINAL TRACT: Mild to moderate sigmoid predominant colonic diverticulosis without evidence of acute diverticulitis. No bowel dilation or evidence of obstruction. Small colonic stool burden. VASCULAR: Severe aortoiliac calcific atherosclerosis. LYMPH NODES: No lymphadenopathy. PERITONEUM: No ascites. BLADDER: Unremarkable. PELVIC VISCERA: Unremarkable. ABDOMINAL AND PELVIC WALL: Unremarkable. OSSEOUS STRUCTURES: Moderate multilevel degenerative thoracolumbar spondylosis. Moderate to severe lumbosacral facet arthropathy with mild, grade 1 anterolisthesis of L5 on S1. CT/CT abdomen pelvis wo IV con IMPRESSION: No acute abnormality of the abdomen or pelvis within the limitations of noncontrast technique. Small colonic stool burden without evidence of bowel obstruction, as clinically queried.
--- NOTE | ~2024-04-04 | XR_ITS ---
EXAMINATION: XR ankle RT min 3V, XR foot RT min 3V 04/04/2024 2:27 PM CLINICAL HISTORY: pain/swelling COMPARISON: None FINDINGS: No evidence of acute fracture or malalignment. Ankle mortise is congruent. Talar dome is intact. Generalized osteopenia. No tibiotalar joint effusion. Vascular calcifications. Soft tissues are otherwise unremarkable. XR/XR foot RT min 3V IMPRESSION: No evidence of acute fracture or malalignment of the right ankle or foot, within limitations of generalized osteopenia.
--- NOTE | ~2024-04-04 | XR_ITS ---
EXAMINATION: XR ankle RT min 3V, XR foot RT min 3V 04/04/2024 2:27 PM CLINICAL HISTORY: pain/swelling COMPARISON: None FINDINGS: No evidence of acute fracture or malalignment. Ankle mortise is congruent. Talar dome is intact. Generalized osteopenia. No tibiotalar joint effusion. Vascular calcifications. Soft tissues are otherwise unremarkable. XR/XR ankle RT min 3V IMPRESSION: No evidence of acute fracture or malalignment of the right ankle or foot, within limitations of generalized osteopenia.
--- NOTE | 2024-04-04 12:09 | ED_ITS ---
HPI - Extremity Injury (Lower) General Chief Complaint: General Medical Stated Complaint: FOOT PAIN/SWELLING,NO KNOWN INJURY PER EMS Covid+ Time Seen by Provider: 04/04/24 12:01 Source: patient, EMS, RN notes reviewed, old records reviewed and other Mode of arrival: EMS Limitations: other (Dementia) History of Present Illness ED Provider: Manuela Jackson PA-C HPI Narrative: 89-year-old female with a past medical history of anxiety, depression, ACS, GERD, osteoarthritis, vascular dementia, presenting to the ED via EMS from [facility] with swelling, ecchymosis, and pain to right foot x1 week. At baseline patient is alert, disoriented but can follow simple commands & ambulates with walker. Per EMS patient is COVID-19 positive. Patient also reports perianal itching, dysuria, and constipation without BM x several days. Denies passing flatus. Patient's nurse reports family requested transfer to ED for foot/ankle evaluation, did have x-rays at facility which were negative, has been icing without relief. No reported trauma/fall. Patient has still been ambulating with walker per her nurse. Remaining history limited due to patient's baseline dementia MD complaint: ankle injury and foot injury Related Data Home Medications ?Medication ?Instructions ?Recorded ?Confirmed acetaminophen 325 mg tablet 650 mg PO Q4H PRN Pain, Mild 10/31/20 10/31/20 aspirin 81 mg tablet,delayed 81 mg PO DAILY 10/31/20 10/31/20 release bisacodyl 10 mg rectal suppository 10 mg NJ DAILY PRN Constipation 10/31/20 10/31/20 cholecalciferol (vitamin D3) 25 25 mcg PO DAILY 10/31/20 10/31/20 mcg (1,000 unit) capsule clopidogrel 75 mg tablet 75 mg PO DAILY 10/31/20 10/31/20 fluoxetine 40 mg capsule 40 mg PO DAILY 10/31/20 10/31/20 loperamide 2 mg tablet 2 mg PO TID PRN Diarrhea 10/31/20 10/31/20 melatonin 5 mg tablet 5 mg PO BEDTIME 10/31/20 10/31/20 nystatin 100,000 unit/gram topical 1 appl topical QSHIFT PRN Rash 10/31/20 10/31/20 powder quetiapine 25 mg tablet 12.5 mg PO BEDTIME 10/31/20 10/31/20 sennosides 8.6 mg tablet (senna) 17.2 mg PO DAILY PRN Constipation 10/31/20 10/31/20 sodium phosphates 19 gram-7 118 ml NJ DAILY PRN Constipation 10/31/20 10/31/20 gram/118 mL enema (Fleet Enema) trazodone 50 mg tablet 50 mg PO BEDTIME 10/31/20 10/31/20 Previous Rx's ?Medication ?Instructions ?Recorded cephalexin 500 mg capsule 500 mg PO QID 7 days #28 caps 04/04/24 Allergies Allergy/AdvReac Type Severity Reaction Status Date / Time No Known Allergies Allergy Verified 04/04/24 13:06 Review of Systems 2 Review of Systems: GI: + constipation : + dysuria, + perianal itching Extremity: + swelling, + ankle/foot pain ROS limited due to patient's baseline dementia Yes all other systems are reviewed and are negative Constitutional: Constitutional: [facility] Past Medical History Attestation statement: The following information was validated with the patient. Source: old records reviewed Medical History 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 Hypertension Dementia Dementia Social History Social History Alcohol intake: unknown Advance Directives: No Do you have a plan to hurt others: No Plan Physical Exam 2 Vital Signs: Vital Signs: Last Vital Signs Temp 98.2 F 04/04/24 16:03 Pulse 91 04/04/24 16:03 Resp 16 04/04/24 16:03 BP 173/78 H 04/04/24 16:03 Pulse Ox 97 04/04/24 16:03 O2 Del Method Room Air 04/04/24 13:02 BMI result Body Mass Index 35.2 Const: General: cooperative and no acute distress O rientation/consciousness: oriented to person and oriented to place (Hospital) Limitations: other limitations (dementia) HEENT: Head: Yes normal to inspection and Yes atraumatic Ears: hearing grossly normal bilaterally General nose exam: Normal external nose present Face and sinus: Yes normal facial exam Eyes: General: appearance normal, both eyes and all related structures EOM: EOMs intact bilaterally Neck: Neck: Yes normal visual inspection and Yes no meningeal signs Resp: Effort & Inspection: normal respiratory effort and no respiratory distress Cardio: Rate: regular rate Peripheral pulses: Peripheral pulses 2+ throughout GI: Inspection: Yes normal to inspection Palpation (GI): Soft to palpation, nontender, no guarding and not rigid Rectal Exam - Female: other (+some hard stool in vault) : External Female Exam: normal external appearance, No erythema, No external swelling, No lesion and No laceration Skin: Rashes: no rashes Neuro: General: oriented to person, oriented to place (Hospital), tone normal and no meningeal signs Cranial nerves: Yes CN's II-XII intact bilaterally Gait exam (Neuro): Normal gait present Extrem: Other: Right foot/ankle with ecchymosis, swelling, and faint erythema dorsally. Small area fluctuance noted to dorsal aspect of foot. No pointing, no induration. ?Hematoma vs abscess. Neurovascular intact. No crepitus Course Course Course Narrative: -1550--no leukocytosis. BUN acute on chronically elevated. Magnesium 1.5 > p.o. repletion given -BNP 224 -UA with blood, not infected -COVID-19 positive XR foot RT min 3V/XR ankle RT min 3V IMPRESSION: No evidence of acute fracture or malalignment of the right ankle or foot, within limitations of generalized osteopenia. CT abdomen pelvis wo IV con IMPRESSION: No acute abnormality of the abdomen or pelvis within the limitations of noncontrast technique. Small colonic stool burden without evidence of bowel obstruction, as clinically queried. > Regulo wrap applied to right foot/ankle. Patient cleared to go back to [facility]. Suspect foot/ankle trauma of unknown etiology. Will also give antibiotics Results discussed with patient including worrisome signs and symptoms and strict return precautions, and when to return to the emergency department. They verbalized understanding and feel safe for discharge at this time. Medications Administered Discontinued Medications Generic Name Dose Route Start Last Admin Trade Name Freq PRN Reason Stop Dose Admin Magnesium Oxide 800 mg 04/04/24 14:21 04/04/24 14:32 Magnesium Oxide 400 Mg Tablet PO 04/04/24 14:22 800 mg ONCE ONE Administration Medical Decision Making Medical Decision Making [facility] [place] Narrative: 89-year-old female with a past medical history of anxiety, depression, ACS, GERD, osteoarthritis, vascular dementia, presenting to the ED via EMS from [facility] with swelling, ecchymosis, and pain to right foot x1 week. Patient also reports perianal itching, dysuria, and constipation without BM x several days. On exam vital signs stable, NAD, nontoxic appearing, physical exam as noted above. Right foot/ankle with suspected trauma of unknown etiology, fluctuant area aspirated with 18 gauge needle and hematoma removed. Concern for infected hematoma vs fracture vs sprain vs contusion. Lower suspicion for DVT. Fecal disimpaction performed. Rule out SBO. Low suspicion for diverticulitis/appendicitis. Rule out UTI. No abnormal external genitalia. Plan: Labs, foot/ankle x-ray, CT > Regulo wrap applied to RLE Please refer to course for remaining clinical decision making, interpretation of labs/imaging results, and discussions with consultants and/or family members. Differential Diagnosis Differential Diagnoses: The differential diagnosis associated with the presentation includes As above Admission/Observation Consideration of admission/observation: Escalation of care including admission/observation considered Lab Data MDM Lab Attestation statement: I reviewed the patient's lab results. 04/04/24 13:32 04/04/24 13:33 Labs: Lab Results 04/04/24 04/04/24 Range/Units 13:32 13:33 WBC 7.3 (4.8-10.8) X10*3/uL RBC 3.19 L (4.20-5.50) X10*6/uL Hgb 10.3 L (12.0-16.0) g/dl Hct 30.3 L (37.0-47.0) % MCV 95.0 (80.0-98.0) fL MCH 32.3 (27.0-33.0) pg MCHC 34.0 (31.0-35.0) g/dl RDW 12.5 (11.0-16.0) % Plt Count 132 L (160-400) X10*3/uL MPV 8.9 L (9.4-12.3) fL Immature Gran % (Auto) 0.3 (0.0-0.4) % Neut % (Auto) 65.3 (45-73) % Lymph % (Auto) 23.5 (20-40) % Doniphan % (Auto) 9.9 (2-11) % Eos % (Auto) 0.7 (0-4) % Baso % (Auto) 0.3 (0-2) % Lymph # (Auto) 1.7 (1.2-4.9) X10*3/uL Don[place]han # (Auto) 0.7 (0.1-1.2) X10*3/uL Eos # (Auto) 0.1 (0.0-0.4) X10*3/uL Baso # (Auto) 0.0 (0.0-0.2) X10*3/uL Abs Immat Gran (auto) 0.02 (0.00-0.03) X10*3/uL Absolute Neuts (auto) 4.8 (2.0-8.3) x10*3/uL Absolute Nucleated RBC 0.000 (0.0-0.012) X10*3/uL Nucleated RBC % (auto) 0.0 (0.0-0.2) /100WBC PT 13.7 H (11.1-13.3) SEC INR 1.1 (0.9-1.1) Sodium 142 (135-145) mmol/L Potassium 3.7 (3.3-5.1) mmol/L Chloride 108 (96-108) mmol/L Carbon Dioxide 26 (22-29) mmol/L Anion Gap 12 (12-20) BUN 23 H (9-16) mg/dL Creatinine 1.13 (0.5-1.4) mg/dL Estim Creat Clear Calc 32.6 Estimated GFR 45 Random Glucose 104 (60-115) mg/dL Calcium 9.5 (8.4-10.2) mg/dL Magnesium 1.5 L (1.6-2.6) mg/dL Total Bilirubin 0.4 (0.0-1.0) mg/dL Direct Bilirubin 0.1 (0.0-0.5) mg/dL AST 24 (5-31) U/L ALT 19 (0-31) U/L Alkaline Phosphatase 58 (39-117) U/L B-Natriuretic Peptide 224 H (<100) pg/mL Total Protein 6.7 (6.5-8.0) g/dL Albumin 3.7 (3.5-5.0) g/dL Lipase 12 (8-78) U/L Urine Color Yellow Urine Appearance Cloudy Urine pH 5.5 (5.0-9.0) Ur Specific Rogers 1.015 (1.005-1.025) Urine Protein Trace (Neg-Trace) mg/dL Urine Glucose (UA) Negative (Negative) mg/dL Urine Ketones Negative (Negative) mg/dL Urine Blood Moderate (2+) H (Negative) Urine Nitrite Negative (Negative) Ur Leukocyte Esterase Moderate (2+) H (Negative) Urine RBC 3-5 H (0-2) /HPF Urine WBC 0-5 (0-5) /HPF Ur Squamous Epith Cells 3-5 (0-2) /HPF Urine Bacteria Trace (None Seen) Hyaline Casts 0-2 (0-2) /LPF Influenza Type A (PCR) NEGATIVE (Negative) Influenza Type B (PCR) NEGATIVE (Negative) RSV RNA Qual (PCR) NEGATIVE (Negative) SARS-CoV-2 RNA (RT-PCR) POSITIVE A (Negative) Independent Interpretation I performed an independent interpretation of an: Plain X-Ray and CT Scan Radiology Impression Discussion of test interpretation with radiology: I have reviewed the radiologist's reading. Independent Historian Clinical information obtained from an independent historian. History obtained from or confirmed by: EMS and Other (pts nurse) External Record Review External record reviewed: Inpatient record, Office record, Outpatient record, Prior outpatient labs, Prior outpatient radiology, Primary care record and Outside ED record Tests considered The following testing was considered but not selected: As above Prescription Management I considered prescription management with: Pain Medication and Antibiotic Chronic Conditions Patient?s care impacted by: Other Social Determinants Patient?s care significantly limited by Social Determinants of Health including: Problems related to primary support group Procedures Abscess I/D Site: foot Side (if applicable): right Technique: needle aspiration (blood/hematoma) Sent for culture/gram staining?: No Irrigation: No Packing used?: none Rectal Disimpaction Indication: fecal impaction Procedural Sedation: No Sedation/Analgesia: none Technique: manual disimpaction with gloved finger Result: significant stool output (moderate) Patient Tolerated Procedure: well Complications: none Discharge Plan Discharge Clinical Impression: COVID-19, Infected hematoma, Foot contusion, Constipation Patient Disposition: Xfer [facility] Transfer Details: [facility] Instructions: Constipation (DC), Foot Contusion (ED), COVID-19 (Coronavirus Disease 2019) (ED) Additional Instructions: Continue home medications including bowel regimen. Keflex as an antibiotic please take for infected hematoma Wear Regulo wrap for compression/pain Ice and elevate Take Tylenol Follow-up with her doctor YOU HAVE COVID-19 At this time you will be okay for discharge. Please self isolate for 5 days. Do not expose yourself to others. You may not go to work or school. Please continue to follow cold instructions and wash your hands frequently. You may take Tylenol / Motrin as directed on the bottle for pain or fever. If you have constant or persistent shortness of breath, fever unresolved with medications, chest pain, or your unable to eat or drink please return to the ED CDC Guidelines for home isolation: - Stay away from others - WEAR A MASK if you are sick AND STAY HOME - Cover your mouth and nose with a tissue when you cough or sneeze. Dispose of tissues in a lined trash can and wash your hands immediately with soap and water for at least 20 seconds. If soap and water are not available, clean hands with alcohol-based hand dealer compliance representative that contains at least 60% alcohol. - Clean your hands often with soap and water for at least 20 seconds - Avoid touching your eyes, nose and mouth with unwashed hands - Do not share dishes, drinking glasses, cups, eating utensils, towels, or bedding with other people in your home. After using these items, wash them thoroughly with soap and water or put in the crew lead. - Clean high-touch surfaces in your isolation area ( sick room and bathroom) every day; let a caregiver clean and disinfect high-touch surfaces in other areas of the home. Clean the area or item with soap and water or another detergent if it is dirty. Then, use a household disinfectant. - Limit contact with pets and animals: If you must care for a pet, wash your hands before and after interacting with them) Prescriptions: New cephalexin 500 mg capsule 500 mg PO QID 7 Days Qty: 28 0RF No Action acetaminophen 325 mg Tablet 650 mg PO Q4H PRN (Reason: Pain, Mild) loperamide 2 mg Tablet 2 mg PO TID PRN (Reason: Diarrhea) clopidogrel 75 mg Tablet 75 mg PO DAILY aspirin 81 mg Tablet,Delayed Release (Dr/Ec) 81 mg PO DAILY bisacodyl 10 mg Suppository 10 mg NJ DAILY PRN (Reason: Constipation) Rx Instructions: USE IF SENNA IS NOT EFFECTIVE Fleet Enema 19-7 gram/118 mL Enema 118 ml NJ DAILY PRN (Reason: Constipation) nystatin 100,000 unit/gram Powder 1 appl TOPICAL QSHIFT PRN (Reason: Rash) Rx Instructions: APPLY TO RED AREAS OF GROIN AND SKIN FOLDS EVERY SHIFT NEEDED cholecalciferol (vitamin D3) 25 mcg (1,000 unit) Capsule 25 mcg PO DAILY melatonin 5 mg Tablet 5 mg PO BEDTIME quetiapine 25 mg Tablet 12.5 mg PO BEDTIME fluoxetine 40 mg Capsule 40 mg PO DAILY sennosides [senna] 8.6 mg Tablet 17.2 mg PO DAILY PRN (Reason: Constipation) trazodone 50 mg Tablet 50 mg PO BEDTIME Referrals: Karissa Glover CNP [Primary Care Provider] - 2 days Print Language: Maltese
[2024-04-04 13:02] VITALS: BP 140/63; PULSE 69; RESP 16; TEMP 37.1; O2SAT 96; BMI 35.2
[2024-04-04 13:38] LABS: MANUAL DIFF FLAG NO
[2024-04-04 13:39] LABS: Basophils Percent Auto 0.3 % (0-2); Eosinophils Absolute Auto 0.1 X10*3/uL (0.0-0.4); Eosinophils Percent Auto 0.7 % (0-4); Hematocrit 30.3 % (37.0-47.0); Hemoglobin 10.3 g/dl (12.0-16.0); Imm Gran Abs Auto 0.02 X10*3/uL (0.00-0.03); Imm Gran Pct Auto 0.3 % (0.0-0.4); Lymphocytes Absolute Auto 1.7 X10*3/uL (1.2-4.9); Lymphocytes Percent Auto 23.5 % (20-40); Mean Corpuscular Hemoglobin 32.3 pg (27.0-33.0); Mean Platelet Volume 8.9 fL (9.4-12.3); Monocytes Absolute Auto 0.7 X10*3/uL (0.1-1.2); Monocytes Percent Auto 9.9 % (2-11); Neutrophils Absolute Auto 4.8 x10*3/uL (2.0-8.3); Neutrophils Percent Auto 65.3 % (45-73); Platelet Count 132 X10*3/uL (160-400); Red Blood Count 3.19 X10*6/uL (4.20-5.50); Red Cell Distribution Width 12.5 % (11.0-16.0); White Blood Count 7.3 X10*3/uL (4.8-10.8)
[2024-04-04 13:40] LABS: Appearance Urine Cloudy; Color Urine Yellow; Glucose Urine UA Negative (Negative); Leukocyte Esterase Urine Moderate (2+) (Negative); Nitrite Urine Negative (Negative); PH 5.5 (5.0-9.0); Specific Gravity - Urine 1.015 (1.005-1.025); UMIC TRIGGER UACC YES; Urine Blood Moderate (2+) (Negative); Urine Ketones Negative (Negative); Urine Protein Trace mg/dL (Neg-Trace)
[2024-04-04 13:50] LABS: INTERNATIONAL NORM RATIO 1.1 (0.9-1.1); Prothrombin Time 13.7 SEC (11.1-13.3)
[2024-04-04 13:57] LABS: Bacteria Urine Trace (None Seen); Hyaline Casts Urine 0-2 /LPF (0-2); WBC Urine 0-5 /HPF (0-5)
[2024-04-04 14:06] LABS: Alanine Aminotransferase 19 U/L (0-31); Albumin Level 3.7 g/dL (3.5-5.0); Alkaline Phosphatase 58 U/L (39-117); Anion Gap 12 (12-20); Aspartate Amino Transferase 24 U/L (5-31); Bilirubin Direct 0.1 mg/dL (0.0-0.5); Bilirubin Total 0.4 mg/dL (0.0-1.0); Blood Urea Nitrogen 23 mg/dL (9-16); Calcium 9.5 mg/dL (8.4-10.2); Carbon Dioxide 26 mmol/L (22-29); Chloride 108 mmol/L (96-108); Creatinine Clr Calc Pharmacy 32.6; Estimated Glomerular Filt Rate 45; Glucose Random 104 mg/dL (60-115); Lipase 12 U/L (8-78); Magnesium 1.5 mg/dL (1.6-2.6); Potassium 3.7 mmol/L (3.3-5.1); Sodium 142 mmol/L (135-145); Total Protein 6.7 g/dL (6.5-8.0)
[2024-04-04 14:11] LABS: B Type Natriuretic Peptide 224 pg/mL (<100)
[2024-04-04] MEDS: Magnesium Oxide 400 MG TABLET 800 MG PO (14:32)
[2024-04-04 14:44] LABS: Influenza A PCR NEGATIVE (Negative); Influenza B PCR NEGATIVE (Negative); Resp Syncy Virus RNA Qual PCR NEGATIVE (Negative); SARS COV2 PCR INHOUSE POSITIVE (Negative)
[2024-04-04 16:03] VITALS: BP 173/78; PULSE 91; RESP 16; TEMP 36.8; O2SAT 97
--- NOTE | 2024-04-04 16:24 | PC.NURSE ---
Called [facility] and spoke to Maria Guadalupe, gave RN to RN phone report, had no questions.
[2024-04-04 19:05] VITALS: BP 173/78; PULSE 91; RESP 16; TEMP 36.8
== END 2024-04-04 19:06 | disposition skilled nursing facility (03) ==
PROVIDERS: Physician Assistant; Emergency Provider Emergency Medicine Emergency Medical Services; PCP Nurse Practitioner Family
DX: U07.1 COVID-19 (principal); S90.31XA Contusion of right foot, initial encounter; X58.XXXA Exposure to other specified factors, initial encounter; K59.00 Constipation, unspecified; Y93.9 Activity, unspecified; Y92.9 Unspecified place or not applicable; Y99.9 Unspecified external cause status; M79.671 Pain in right foot; I10 Essential (primary) hypertension; F03.90 Unspecified dementia, unspecified severity, without behavioral disturbance, psychotic disturbance, mood disturbance, and anxiety; Z79.82 Long term (current) use of aspirin; Z79.899 Other long term (current) drug therapy
CPT/HCPCS: 0241U; 10160; 73610; 73630; 74176; 80048; 80076; 81001; 83690; 83735; 83880; 85025; 85610; 99283; 99284

== ENCOUNTER 2025-07-15 13:37 | Emergency (ER) | payer MEDICARE, MEDICAID, SELFPAY ==
--- NOTE | ~2025-07-15 | XR_ITS ---
EXAMINATION: XR NECK SOFT TISSUE HISTORY: ? Aspiration COMPARISON: There are no prior studies available for comparison. FINDINGS: AP and lateral views of the soft tissues of the neck is. The epiglottis and aryepiglottic folds are unremarkable in appearance. The airways patent. There is no prevertebral soft tissue swelling. Calcifications in the neck bilaterally are likely related to the internal carotid arteries. XR/XR soft tissue neck IMPRESSION: Unremarkable examination of the soft tissues of the neck. Electronically signed by: Gurmeet Ortiz MD 07/15/2025 02:38 PM EDT
--- NOTE | ~2025-07-15 | XR_ITS ---
EXAMINATION: XR CHEST 1 VIEW HISTORY: ? Aspiration COMPARISON: Comparison is made with the prior examination dated 04/26/2022. FINDINGS: A single AP portable view of the chest performed at 2:26 PM is submitted. The lungs are expanded and clear. There is no pleural effusion, pneumothorax, or pulmonary vascular congestion. The heart is normal in size. There is calcification of the aorta. There is degenerative disc disease of the spine. XR/XR chest 1V IMPRESSION: No acute cardiopulmonary abnormality. Electronically signed by: Gurmeet Ortiz MD 07/15/2025 02:35 PM EDT
[2025-07-15 13:49] VITALS: BP 152/61; BP 157/75; PULSE 72; PULSE 90; RESP 20; TEMP 36.7; O2SAT 85; O2SAT 94; BMI 27.8
[2025-07-15 13:54] VITALS: BP 152/61; PULSE 73; RESP 20; TEMP 36.7; O2SAT 94
--- NOTE | 2025-07-15 14:37 | PC.NURSE ---
Addendum entered by Henry Hall RN 07/15/25 14:39: Pt does have pain, 8/10 in throat, sts felt like something got stuck in throat when eating. Airway patent and pt speaking in complete sentences without difficulty. Original Note: 89 F presents to ED with concerns for aspiration at facility, has dementia, A+Ox1-[address], confused to time/event. RR even and unlabored, no visible s/s of distress. Pt is calm, cooperative. Pt denies any pain at this time.
[2025-07-15 15:32] LABS: MANUAL DIFF FLAG NO
[2025-07-15 15:33] LABS: Hematocrit 31.7 % (37.0-47.0); Hemoglobin 10.4 g/dl (12.0-16.0); Imm Gran Abs Auto 0.02 X10*3/uL (0.00-0.03); Imm Gran Pct Auto 0.3 % (0.0-0.4); Lymphocytes Absolute Auto 1.1 X10*3/uL (1.2-4.9); Mean Corpuscular HGB Conc 32.8 g/dl (31.0-35.0); Mean Corpuscular Hemoglobin 32.2 pg (27.0-33.0); Mean Corpuscular Volume 98.1 fL (80.0-98.0); NRBC Abs Auto 0.000 X10*3/uL (0.0-0.012); NRBC Pct Auto 0.0 /100WBC (0.0-0.2); Platelet Count 180 X10*3/uL (160-400); Red Blood Count 3.23 X10*6/uL (4.20-5.50); White Blood Count 6.9 X10*3/uL (4.8-10.8)
[2025-07-15 15:49] LABS: Alanine Aminotransferase 22 U/L (0-31); Albumin Level 4.0 g/dL (3.5-5.0); Alkaline Phosphatase 76 U/L (39-117); Anion Gap 11 (12-20); Aspartate Amino Transferase 24 U/L (5-31); Blood Urea Nitrogen 27 mg/dL (9-16); Calcium 9.4 mg/dL (8.4-10.2); Carbon Dioxide 29 mmol/L (22-29); Chloride 109 mmol/L (96-108); Creatinine Clr Calc Pharmacy 32.3; Estimated Glomerular Filt Rate 50; Potassium 4.6 mmol/L (3.3-5.1); Sodium 144 mmol/L (135-145); Total Protein 6.9 g/dL (6.5-8.0)
--- NOTE | 2025-07-15 15:51 | ED.GENADULT ---
HPI - General Adult General Chief complaint: General Medical Stated complaint: aspirated lunch, cough from [facility] Time Seen by Provider: 07/15/25 15:51 Source: patient and EMS Mode of arrival: EMS History of Present Illness ED Provider: HPI narrative: Patient is presenting from [facility] for reports of aspirated lunch and coughing, reportedly she choked on a piece of meat and she was satting 85% on room air, at the time of my evaluation patient's saturation was 94% on room air, she was in no respiratory distress she is alert to self and location, information was obtained with the help of the slot floor person patient is able to recall something about choking on the meat when she was eating, she has no complaints at this time but she is otherwise limited historian. Related Data Home Medications ?Medication ?Instructions ?Recorded ?Confirmed acetaminophen 325 mg tablet 650 mg PO Q4H PRN Pain, Mild 10/31/20 10/31/20 aspirin 81 mg tablet,delayed 81 mg PO DAILY 10/31/20 10/31/20 release bisacodyl 10 mg rectal suppository 10 mg [place] DAILY PRN Constipation 10/31/20 10/31/20 cholecalciferol (vitamin D3) 25 25 mcg PO DAILY 10/31/20 10/31/20 mcg (1,000 unit) capsule clopidogrel 75 mg tablet 75 mg PO DAILY 10/31/20 10/31/20 fluoxetine 40 mg capsule 40 mg PO DAILY 10/31/20 10/31/20 loperamide 2 mg tablet 2 mg PO TID PRN Diarrhea 10/31/20 10/31/20 melatonin 5 mg tablet 5 mg PO BEDTIME 10/31/20 10/31/20 nystatin 100,000 unit/gram topical 1 appl topical QSHIFT PRN Rash 10/31/20 10/31/20 powder quetiapine 25 mg tablet 12.5 mg PO BEDTIME 10/31/20 10/31/20 sennosides 8.6 mg tablet (senna) 17.2 mg PO DAILY PRN Constipation 10/31/20 10/31/20 sodium phosphates 19 gram-7 118 ml [place] DAILY PRN Constipation 10/31/20 10/31/20 gram/118 mL enema (Fleet Enema) trazodone 50 mg tablet 50 mg PO BEDTIME 10/31/20 10/31/20 Previous Rx's ?Medication ?Instructions ?Recorded cephalexin 500 mg capsule 500 mg PO QID 7 days #28 caps 04/04/24 Allergies Allergy/AdvReac Type Severity Reaction Status Date / Time No Known Allergies Allergy Verified 07/15/25 13:53 Review of Systems Constitutional: Constitutional: Reports as per [facility] Past Medical History Medical History 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 Hypertension Dementia Dementia Social History Social History Alcohol intake: unknown Smoked in Last 30 Days: No Use of substances other than those prescribed or required for medical reasons: No Advance Directives: Yes Advance Directives on File: Yes Advance Directives Date on File: 11/29/20 Do you have a plan to hurt others: No Plan Physical Exam ED Vital Signs: Vital Signs - 24 hr 07/15/25 13:49 07/15/25 13:54 07/15/25 16:15 Temperature 98.1 F 98.1 F 98.4 F Pulse Rate 72 73 70 Respiratory Rate 20 20 16 Blood Pressure 152/61 H 152/61 H 180/79 H Pulse Oximetry 94 94 96 Oxygen Delivery Method Room Air Room Air Room Air BMI result Body Mass Index 27.8 Const Other: Gen: ?Overall well-appearing patient HEENT: Upper dentures, edentulous lower jaw, no foreign bodies, uvula midline Neck: Supple, no LAD CV: S1-S2 Resp: ?No wheezing rales rhonchi no stridor moving air well Abd: ?Bowel sounds are present, no tenderness no rebound no rigidity MSK: FROM, strength 5/5 all extremities Skin: Warm, dry, intact, Neuro: ?Alert and oriented to self and her date of , moving upper and lower extremities symmetrically, no obvious facial asymmetry noted Medical Decision Making Medical Decision Making MDM Narrative: 4:11 PM 07/15/2025 (Dr. Sonny Greene): Patient is a limited historian but she does remember choking, information was obtained with the help of the slot floor person, I examined her upper airway there was no foreign bodies there, she has upper dentures, lower jaws edentulous, I gave her water to sip and she drank a cup of water without any choking or spitting up, she has been sitting comfortably controlling her secretions without any stridor, x-ray soft tissue neck without obvious radiopaque foreign bodies, she has not been hypoxic here and there were no abnormal breath sounds to suspect aspiration but in any case there was no indication for starting patient antibiotic even in the case of aspiration Differential Diagnosis Differential Diagnoses: The differential diagnosis associated with the presentation includes (Food bolus aspiration, aspiration pneumonia, CHF, upper airway foreign body) Admission/Observation Consideration of admission/observation: Escalation of care including admission/observation considered Lab Data [facility] Lab Attestation statement: I reviewed the patient's lab results. 07/15/25 15:28 07/15/25 15:28 Labs: Lab Results 07/15/25 Range/Units 15:28 WBC 6.9 (4.8-10.8) X10*3/uL RBC 3.23 L (4.20-5.50) X10*6/uL Hgb 10.4 L (12.0-16.0) g/dl Hct 31.7 L (37.0-47.0) % MCV 98.1 H (80.0-98.0) fL MCH 32.2 (27.0-33.0) pg MCHC 32.8 (31.0-35.0) g/dl RDW 12.7 (11.0-16.0) % Plt Count 180 D (160-400) X10*3/uL MPV 8.6 L (9.4-12.3) fL Immature Gran % (Auto) 0.3 (0.0-0.4) % Neut % (Auto) 78.3 H (45-73) % Lymph % (Auto) 15.2 L (20-40) % [facility] [facility] % (Auto) 5.5 (2-11) % Eos % (Auto) 0.4 (0-4) % Baso % (Auto) 0.3 (0-2) % Lymph # (Auto) 1.1 L (1.2-4.9) X10*3/uL [facility] # (Auto) 0.4 (0.1-1.2) X10*3/uL Eos # (Auto) 0.0 (0.0-0.4) X10*3/uL Baso # (Auto) 0.0 (0.0-0.2) X10*3/uL Abs Immat Gran (auto) 0.02 (0.00-0.03) X10*3/uL Absolute Neuts (auto) 5.4 (2.0-8.3) x10*3/uL Absolute Nucleated RBC 0.000 (0.0-0.012) X10*3/uL Nucleated RBC % (auto) 0.0 (0.0-0.2) /100WBC Sodium 144 (135-145) mmol/L Potassium 4.6 D (3.3-5.1) mmol/L Chloride 109 H (96-108) mmol/L Carbon Dioxide 29 (22-29) mmol/L Anion Gap 11 L (12-20) BUN 27 H (9-16) mg/dL Creatinine 1.03 (0.5-1.4) mg/dL Estim Creat Clear Calc 32.3 Estimated GFR 50 Random Glucose 115 (60-115) mg/dL Calcium 9.4 (8.4-10.2) mg/dL Total Bilirubin 0.3 (0.0-1.0) mg/dL AST 24 (5-31) U/L ALT 22 (0-31) U/L Alkaline Phosphatase 76 (39-117) U/L Total Protein 6.9 (6.5-8.0) g/dL Albumin 4.0 (3.5-5.0) g/dL Independent Interpretation I performed an independent interpretation of an: Plain X-Ray (No radio opaque foreign bodies) Radiology Impression Discussion of test interpretation with radiology: I have reviewed the radiologist's reading. Radiologist Impression: XR/XR soft tissue neck IMPRESSION: Unremarkable examination of the soft tissues of the neck. Chest x-ray unremarkable as well Prescription Management I considered prescription management with: Antibiotic Chronic Conditions Patient?s care impacted by: Other (Dementia) Discharge Plan Discharge Clinical Impression: Aspiration of food Qualifiers: Encounter type: initial encounter Qualified Code(s): T17.928A - Food in respiratory tract, part unspecified causing other injury, initial encounter Additional Instructions: Patient evaluated with reports of aspiration, and reports that her oxygen was low, her oxygen has 94% on room air in the emergency department, she had reassuring x-ray and blood work, she was given food and she has no evidence for food bolus impaction, there was no indication for antibiotic initiation, if patient spikes fevers or starts developing shortness of breath I recommend you bring her back for chest x-ray otherwise she will be discharged back to her facility Prescriptions: No Action acetaminophen 325 mg Tablet 650 mg PO Q4H PRN (Reason: Pain, Mild) loperamide 2 mg Tablet 2 mg PO TID PRN (Reason: Diarrhea) clopidogrel 75 mg Tablet 75 mg PO DAILY aspirin 81 mg Tablet,Delayed Release (Dr/Ec) 81 mg PO DAILY bisacodyl 10 mg Suppository 10 mg [place] DAILY PRN (Reason: Constipation) Rx Instructions: USE IF SENNA IS NOT EFFECTIVE Fleet Enema 19-7 gram/118 mL Enema 118 ml [place] DAILY PRN (Reason: Constipation) nystatin 100,000 unit/gram Powder 1 appl TOPICAL QSHIFT PRN (Reason: Rash) Rx Instructions: APPLY TO RED AREAS OF GROIN AND SKIN FOLDS EVERY SHIFT NEEDED cholecalciferol (vitamin D3) 25 mcg (1,000 unit) Capsule 25 mcg PO DAILY melatonin 5 mg Tablet 5 mg PO BEDTIME quetiapine 25 mg Tablet 12.5 mg PO BEDTIME fluoxetine 40 mg Capsule 40 mg PO DAILY sennosides [senna] 8.6 mg Tablet 17.2 mg PO DAILY PRN (Reason: Constipation) trazodone 50 mg Tablet 50 mg PO BEDTIME cephalexin 500 mg capsule 500 mg PO QID 7 Days Qty: 28 0RF Print Language: Angolan
[2025-07-15 16:15] VITALS: BP 180/79; PULSE 70; RESP 16; TEMP 36.9; O2SAT 96
[2025-07-15 18:22] VITALS: BP 180/79; PULSE 70; RESP 16; TEMP 36.9; O2SAT 96
--- NOTE | 2025-07-15 18:22 | PC.NURSE ---
Report called to adrián Farnsworth RN. Report accepted.
--- OUTSIDE RECORDS SUMMARY | 2025-07-15 19:04 | XMS_ITS | Data Portability ---
Author Organization [facility], Main Office Address [address], [address] [place] [address] Care Team Providers Care Psychological Aide Name Role Phone ROBERTA HERRERA - 4TH FLOOR OTHER Assessment No assessment recorded. Plan of Treatment Reminders Order Date Submit Date Provider Last Modified By Organization Details Last Modified Time Details Appointments None record ed. Lab None record ed. Referral None record ed. Procedures None record ed. Surgeries None record ed. Imaging None record ed. Medication Orders None record ed. Patient TargetsNo targets recorded. Patient InstructionsNo instructions recorded. Reason for Referral None Reported. Problems Name Problem SNOMED Code Status Onset Date Resolution Date Notes Provider Name and Address Organization Details Recorded Time Adult failure to thrive syndrome 074450063 Active [address] [facility], [address], [place], [address], [facility] 0 11:28:46 Atheroscler osis of coronary artery without angina pectoris 7363021488477 03 Active [address] [facility] [address], [address], [place], [address], [facility] [employer] [facility] 0 11:29:27 Essential hypertensio n 82433265 Active [address] [facility], [address], [place], [address], [facility] [employer] [facility] 0 11:29:34 Vascular dementia without behavioral disturbance 0364209228785 9109 Active [address] [facility] [address], [address], [place], [address], [facility] [employer] [facility] 0 11:29:45 Hallucinati ons 9889906 Active 2019 Tiffanie Louise EARL [address], [address], [place], [address], [facility] 0 11:29:56 Type 2 diabetes mellitus without complicatio n 201208895 Active 2019 Tiffanie Louise, [employer] [address], [address], [place], [address], [facility] - [employer] [facility] 0 11:31:37 Pica 84333949 Active 2019 Tiffanie Dani, [employer] [address], [address], [place], [address], [facility] - [employer] [facility] 0 11:31:51 Insomnia 377341196 Active 2019 FRIDA EARL HILLS [address], [address], [place], [address], [facility] - [employer] [facility] 0 19:55:10 Abnormal weight gain 870247061 Active 2020 EARL SUMMERS [address], [address], [place], [address], [facility] - [employer] [facility] 1 16:55:35 Suicidal thoughts 9676502 Active 2020 EARL SUMMERS [address], [address], [place], [address], [employer] [facility] [employer] [facility] 1 14:13:06 Vitamin deficiency 75412642 Active 2020 EARL SUMMERS [address], [address], [place], [address], [employer] [facility] [employer] [facility] 1 18:11:00 Vascular dementia with behavioral disturbance 6886904495020 04 Active 2020 KRISTIN ALVES NP [address], [address], [place], [address], [facility] 1 14:14:50 Recurrent falls 883268800 Active 2020 SAADIA GALLO NP [address], [address], [place], [address], [facility] 1 10:14:07 Gastroesoph ageal reflux disease without esophagitis 428452546 Active [address] [facility] [address], [address], [place], [address], [facility] 2 14:30:48 Dizziness 913239212 Active 2021 SAADIA GALLO NP [address] [facility] [address], [address], [place], [address], [facility] 2 11:42:27 Intracrania l hemorrhage 7597031 Active 2021 Ferny Hernandez NP [address] [facility] [address], [address], [place], [address], [facility] 2 15:09:53 Orthostatic hypotension 33821131 Active 2023 Marlena Diego MD [address] [facility] [address], [address], [place], [address], [facility] 4 17:06:22 Coronary arterioscle rosis 94782847 Active 2023 Marlena Digeo MD [address] [facility] [address], [address], [place], [address], [facility] 4 17:06:54 Problem Notes None recorded. Medical Equipment None Reported. Allergies No known drug allergies Medications Not known to be on any medication Vitals Date Recorded Body height Body weight Heart rate Respiratory rate Body temperature Oxygen saturation Oxygen saturation in Arterial blood by Pulse oximetry Systolic And Diastolic Provider Name and Address Organization Details Last Updated DateTime 5 152.4 cm 23934.7 1 g 68 /min 18 /min 97.8 [degF] 96 % 96 % 102/56 mm[Hg] Rosamaria Perez NP [address] [facility] [address] [facility], [address], [place], [address], [facility] 5 13:42:08 Date Recorded Body height Systolic And Diastolic Provider Name and Address Organization Details Last Updated DateTime 12/26/2024 152.4 cm 153/71 mm[Hg] Edil Barillas MD [address] [facility] [address], [address], [place], [address], [facility] 12/26/2024 11:33:06 Date Recorded Body height Body mass index (BMI) Body weight Heart rate Respiratory rate Body temperature Oxygen saturation Oxygen saturation in Arterial blood by Pulse oximetry Systolic And Diastolic Provider Name and Address Organization Details Last Updated DateTime 5 152.4 cm 28.7 kg/m2 93402.0 8 g 66 /min 18 /min 98.2 [degF] 98 % 98 % 169/81 mm[Hg] Rosamaria Perez NP [address], [place], [address], [employer] 5 11:46:35 Date Recorded Body height Heart rate Respiratory rate Body temperature Oxygen saturation Oxygen saturation in Arterial blood by Pulse oximetry Systolic And Diastolic Provider Name and Address Organization Details Last Updated DateTime 5 152.4 cm 78 /min 18 /min 97 [degF] 96 % 96 % 148/81 mm[Hg] Rosamaria Perez NP [address], [place], [address], [employer] 5 08:11:52 Date Recorded Body height Body weight Respiratory rate Body temperature Oxygen saturation Oxygen saturation in Arterial blood by Pulse oximetry Systolic And Diastolic Provider Name and Address Organization Details Last Updated DateTime 5 152.4 cm 03226.8 9 g 18 /min 98.6 [degF] 96 % 96 % 153/74 mm[Hg] Rosamaria Perez NP [address] [facility] [address], [place], [address], [employer] 5 11:02:08 Social History Question Answer Notes LastModified by Organizat ion Details LastModified Time Tobacco Smoking Status Never Smoker EARL Benites [address] [facility] [address] [facility], [address], [place], [address], [employer] 09/01/2020 11:23:31 Do You Have An Advance Directive? Yes FULL CODE/use Dialysis, Nutrition And Hydration Information not available 02/21/2021 How Much Tobacco Do You Chew? None Information not available 09/16/2020 What Is Your Code Status? 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 No [email or web address] Informati on not available 09/10/2022 Do You Have A Medical Power Of Lead Teacher? Yes Valid Copy On Chart, Invoked [email or web address] Information not available 09/10/2022 What Was The Date Of Your Most Recent Tobacco Screening? 09/10/2022 [email or web address] Information not available 09/10/2022 Do You Have An Out Of Hospital DNR? No [email or web address] Information not available 09/10/2022 What Is Your Relationship Status? Information not available 05/04/2024 How Much Tobacco Do You Smoke? No Information not available 09/05/2020 Has Tobacco Cessation Counseling Been Provided? No N/A As Pt No Longer Uses Tobacco Information not available 05/04/2024 Sex: Unknown Functional Status Question Answer Note LastModified by Organizat ion Details LastModified Time Do you use any illicit or recreational drugs? No Information not available 05/04/2024 Do you or have you ever used any other forms of tobacco or nicotine? Yes Information not available 05/04/2024 What is your level of alcohol consumption? None [email or web address] Information not available 09/01/2020 Do you or have you ever used smokeless tobacco? Former smokeless tobacco user [email or web address] Information not available 09/01/2020 Do you or have you ever used e-cigarettes or vape? Never used electronic cigarettes Information not available 09/01/2020 Mental Status None recorded. Family History Nothing Reported Notes:n/c Medical History No medical history recorded. Gynecological HistoryNo gynecological history recorded. Obstetrics History GPAL:G 0 P 0 0 0 0 Immunizations Vaccine Type Date Status Note Provider Nam e and Address Organization Details Recorded Time Pneumococcal conjugate PCV 13 1 completed YANIV GRULLON PA-C [address] [place] [address], [address], [place], [address], [facility] [employer] 09/10/2022 13:57:04 COVID-19, mRNA, LNP-S, PF, 30 mcg/0.3 mL dose, yayo-sucrose 1 completed YANIV GRULLON PA-C [address] [facility] [address], [address], [place], [address], [facility] 09/10/2022 13:58:04 COVID-19, mRNA, LNP-S, bivalent, PF, 10 mcg/0.2 mL dose 2 completed YANIV GRULLON PA-C [address] [facility] [address], [address], [place], [address], [facility] 09/10/2022 13:58:20 Influenza, adjuvanted, quadrivalent, PF 2 completed Marbella gordon, [facility] 12/10/2023 08:07:43 Influenza, adjuvanted, quadrivalent, PF 3 completed Marbella gordon, [facility] 12/10/2023 08:08:08 pneumococcal polysaccharide PPV23 2 completed Marbella gordon, [facility] 12/10/2023 08:13:46 COVID-19, mRNA, LNP-S, PF, 30 mcg/0.3 mL dose 1 completed EARL SUMMERS [address] [facility] [address] [facility], [address], [place], [address], [facility] 12/20/2020 17:22:54 COVID-19, mRNA, LNP-S, PF, 30 mcg/0.3 mL dose 1 completed EARL SUMMERS [address] [facility] [address] [facility], [address], [place], [address], [facility] 12/20/2020 17:23:10 Past Encounters Encounter ID Performer Location Encounter Start Date Encounter Closed Date Diagnosis/Indication Diagnosis SNOMED-CT Code Diagnosis ICD10 Code Diagnosis IMO Codes Diagnosis Note [id number] EARL Benites [address] [address] 09/01/2020 11:21:04 09/30/2020 12:28:21 Vascular dementia without behavioral disturbance [id number] 6194588 F01.50 see hpi seroquel 12.5 mg qhs trazodone 50 mg qhs melatonin 5 mg qhs pt will most likely need to be LTC due to inability of family to care for her 13/05 pt tearful and depressed today, uncertain where she will be living, reassuranc e given monitor mood, behaviors psych to follow Atheroscle rosis of coronary artery without angina pectoris 4721981492 71801 I25.10 taken off lipitor asa 81 mg qd plavix 75 mg qd monitor for chest pain, sob Essential hypertension 14091336 I10 bp normal no treatment monitor bp and labs Hallucinations 2894658 R 44.3 meds as above psych to follow 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 877730427 E11.9 no treatment FBS 90 will check A1c on 09/05 Adult fail ure to thrive syndrome 946211127 R62.7 monitor intake fruit dryer to follow Pica 50832067 F50.89 meds as above psych to follow Recurrent falls 80475588 2 R29.6 PT OT for conditioni ng and mobilitymo nitor for fall risk [id number] Trista Reza MD [address] [address] 09/02/2020 06:45:51 09/29/2020 15:15:24 Atherosclerosis of coronary artery without angina pectoris 5396962642 05288 I25.10 ASA 81 mg dailyclopi dogrel 75 mg dailywill monitor Primary insomnia 5579697 F51.01 melatonin 5 mg at hstrazodon e 50 mg at hswill monitor Vascular d ementia without behavioral disturbance 5021673626 8408772 F01.50 quetiapine 12.5 mg at hstrazodon e 50 mg at hswill monitor and support as patient adjusts to facility 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 682691422 E11.9 no meds at this pdykj8m next weekwill monitor Asthenia 32212393 R53.1 PT/OTwill monitor [id number] EARL SUMMERS [facility] [address] [address] 09/05/2020 12:48:47 09/29/2020 15:04:46 Pica 32349556 F50.89 started on prozac on saturday at 20 mg qdwill continue to monitor for positive effectmoni torensure small things are not around her and bags are not where she can get them Vascular d ementia without behavioral disturbance 9980397760 7253141 F01.50 [facility] [id number] EARL SUMMERS [facility] [address] 09/12/2020 11:58:58 09/29/2020 15:05:40 Pica 63952810 F50.89 prozac 20 mg qdwill continue to monitorshe has candy that she has been eating-wit h now questionab le loose stools-unc lear if sugar free and this could be the cause staff notes they have not heard that she has been eating objects she shouldn't Loose stool 302774637 R1 9.5 loose stoolseati ng candy at bedside-if sugar free they contain sorbitol usually which would cause her to have loose stoolsif not sugar free then maybe it is too much sugar for her causing loose stools [id number] EARL SUMMERS [address] [address] 09/16/2020 13:05:56 09/29/2020 15:06:48 Pica 06720727 F50.89 prozac 20 mg qdnoted to have some plastic in mouth by staffwill increase prozac to 40 mg qdmonitor [id number] EARL SUMMERS [address] [address] 09/26/2020 13:50:30 09/29/2020 15:07:46 Vascular dementia without behavioral disturbance 1351304360 8872171 F01.50 [facility] 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 577998687 E11.9 carries diagnosisn ot on medication monitor for s/s of hypo/hyper glycemiamo nitor A1c Pica 51225258 F50.89 prozac 40 mg qdmonitor behaviorsp sych eval and treat prn Hallucinations 8798156 R 44.2 seroquel 12.5 mg q hsmonitor for hallucinat ions Essential hypertension 87172994 I10 ASA 81 mg qdplavix 75 mg qdnot on medication monitor b/p and labs Atheroscle rosis of coronary artery without angina pectoris 4245622185 09392 I25.10 ASA 81 mg qdplavix 75 mg qdmonitor Adult fail ure to thrive syndrome 583366131 R62.7 monitor intakediet blu consult prn Insomnia 399849405 G47.0 9 melatonin 5 mg q hstrazodon e 50 mg q hsmonitor sleep [id number] Trista Reza MD [facility] [address] [place] [address] 10/20/2020 07:42:03 10/24/2020 16:18:32 Atherosclerosis of coronary artery without angina pectoris 5963260704 99766 I25.10 ASA 81 mg dailyclopi dogrel 75 mg dailywill monitor Essential hypertension 51778917 I10 no meds at this time 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 090057011 E11.9 no meds at this timewill monitor Vascular d ementia without behavioral disturbance 1816565769 0389665 F01.50 quetiapine 12.5 mg at hstrazodon e 50 mg at hswill monitor and supportsee meds for mixed anxiety/de pressive disorder Mixed anxi ety and depressive disorder 371449300 F41.8 fluoxetine 40 mg dailyqueti apine 12.5 mg at hstrazodon e 50 mg at hswill monitor with HDBHconsid er change in meds to help with PICA: consider fluvoxamin e or different SSRI or SNRI [id number] EARL SUMMERS [facility] [address] [place] [address] 10/31/2020 10:54:13 11/02/2020 09:17:58 Pica 27784107 F50.89 prozac 40 mg qd was tried and discontinu edspoke with one of mds and will try fluvoxamin e 50 mg q hsniece coming in to sign paper monitor behaviorsp sych eval and treat prn Vascular d ementia without behavioral disturbance 9285862783 5704389 F01.50 expect declinesup portive careHCP invoked[employer] itor for safety yelling out in trinidadian when she sees certain peoplemake s comments to staff but is mostly confused conversati on Adult fail ure to thrive syndrome 863364405 R62.7 monitor intakediet blu consult prn of note patient has continued to put on weight Abnormal weight gain 161 650155 R63.5 patient came in at 159.4 in august and is now 164.8monit or intake [id number] EARL SUMMERS [address] [address] 11/04/2020 14:08:14 11/07/2020 14:15:19 Suicidal thoughts 0568091 R45.851 no medication changes in hospitalwa s a bed search going on but sent backmonito r for behaviorsp sych eval and treat prn Hallucinations 0039142 R 44.2 seroquel 12.5 mg q hsmonitor for hallucinat ions Pica 10416896 F50.89 fluvoxamin e 50 mg q hsmonitor behaviorsp sych eval and treat prn Vascular d ementia without behavioral disturbance 5266146019 4020277 F01.50 expect declinesup portive careHCP invokedmon itor for safety 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 062876387 E11.9 carries diagnosisn ot on medication monitor for s/s of hypo/hyper glycemiamo nitor A1c Insomnia 925417931 G47.0 9 melatonin 5 mg q hstrazodon e 50 mg q hsmonitor sleep Essential hypertension 47925104 I10 ASA 81 mg qdplavix 75 mg qdnot on medication monitor b/p and labs Atheroscle rosis of coronary artery without angina pectoris 9890966819 84147 I25.10 ASA 81 mg qdplavix 75 mg qdmonitor Adult fail ure to thrive syndrome 506793808 R62.7 monitor intakediet blu consult prn Vitamin deficiency 82529 002 E56.8 vitamin D3 1000 iu qdmonitor levels [id number] [facility] [address] [address] 11/09/2020 08:39:56 11/11/2020 13:13:16 Vascular dementia without behavioral disturbance 7086284595 7313427 F01.50 expect declinesup portive careHCP invokedmon itor for safety 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 296754794 E11.9 carries diagnosisn ot on medication monitor for s/s of hypo/hyper glycemiamo nitor A1c Pica 91251638 F50.89 fluvoxamin e 50 mg q hsmonitor behaviorsp sych eval and treat prn Insomnia 763602085 G47.0 9 melatonin 5 mg q hstrazodon e 50 mg q hsmonitor sleep Hallucinations 0047829 R 44.2 seroquel 12.5 mg q hsmonitor for hallucinat ions Essential hypertension 13931812 I10 ASA 81 mg qdplavix 75 mg qdnot on medication monitor b/p and labs Atheroscle rosis of coronary artery without angina pectoris 9974508254 31197 I25.10 ASA 81 mg qdplavix 75 mg qdmonitor [id number] EARL SUMMERS [facility] [address] [address] 11/22/2020 12:05:53 11/24/2020 09:48:44 Pruritus of vagina 22741533 B37.3 will give diflucan 200 mg once (as this is the dose in e-kit)paula tor for resolution [id number] EARL SUMMERS [facility] [address] [address] 11/28/2020 11:28:48 11/29/2020 15:09:21 Chest pain 69456056 R07.89 work up negative in the hospitalwi ll address code status with hcp as she remains a full codeshe denies any pain todaymonit or for other possibilit ies such as reflux [id number] Trista Reza MD [facility] [address] [address] 12/30/2020 08:50:04 01/03/2021 11:11:51 Atherosclerosis of coronary artery without angina pectoris 6985099033 89925 I25.10 ASA 81 mg dailyclopi dogrel 75 mg dailywill monitor 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 066308975 E11.9 no meds at this timewill monitor Vascular d ementia without behavioral disturbance 9748924012 5301969 F01.50 expect declinewil l monitor and supportsee meds for mixed anxiety/de pressive disorder Mixed anxi ety and depressive disorder 587132124 F41.8 fluvoxamin e 50 mg at hs quetiapine 12.5 mg in morningtra zodone 50 mg at hswill monitor with [facility] [id number] EARL SUMMERS [address] [address] 02/21/2021 10:03:04 02/24/2021 12:34:16 Essential hypertension 11784668 I10 ASA 81 mg qdplavix 75 mg qdnot on medication monitor b/p and labs Hallucinations 7317957 R 44.2 seroquel 12.5 mg q hsmonitor for hallucinat ions Pica 22224998 F50.89 fluvoxamin e 50 mg q hsmonitor behaviorsp sych eval and treat prn Vascular d ementia without behavioral disturbance 3047340502 6135310 F01.50 expect declinesup portive careHCP invokedmon itor for safety 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 160655254 E11.9 carries diagnosisn ot on medication monitor for s/s of hypo/hyper glycemiamo nitor A1c [id number] EARL SUMMERS [address] [address] 03/13/2021 09:42:05 03/16/2021 09:51:10 Acute urinary tract infection 898229306 N30.20 growing E coli will await sensitivit ies Low grade pyrexia 064733 008 R50.81 low grade temp over weekend covid negative chest x=ray negative placed on isolation over weekend urine positive for uti removed isolation [id number] Trista Reza MD [address] [address] 04/21/2021 07:49:53 04/26/2021 10:40:58 Type 2 diabetes mellitus without complication 283704469 E11.9 other meds at this timewill monitor Vascular d ementia without behavioral disturbance 6051829026 6112838 F01.50 expect declinewil l monitor and supportsee meds for mixed anxiety/de pressive disorder Mixed anxi ety and depressive disorder 720791591 F41.8 fluvoxamin e 50 mg at hsmeclizin e 25 mg in morning and bid prnquetiap ine 12.5 mg bidtrazodo ne 50 mg at hswill monitor with HDBHconsid er medication change due to continued irritabili tyconsider trial 12.5 mg trazodone in morning or sertraline 25 mg in morning Atheroscle rosis of coronary artery without angina pectoris 1211662149 55230 I25.10 ASA 81 mg dailyclopi dogrel 75 mg dailywill monitor [id number] KRISTIN ALVES NP [facility] [address] [address] 05/17/2021 13:26:53 05/22/2021 14:55:48 Vascular dementia with behavioral disturbance 4701265687 80863 F01.51 seroquel 12.5 mg bidseroque l 12.5 mg bid prn for 14 dayspsych prn [id number] EARL SUMMERS [facility] [address] [address] 06/13/2021 13:04:36 06/19/2021 16:19:42 Vascular dementia without behavioral disturbance 3230702405 8014207 F01.50 expect declinesup portive careHCP invokedmon itor for safety 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 322101487 E11.9 carries diagnosisn ot on medication monitor for s/s of hypo/hyper glycemiamo nitor A1c Pica 78202541 F50.89 fluvoxamin e 50 mg q hsmonitor behaviorsp sych eval and treat prn Hallucinations 1865872 R 44.2 seroquel 12.5 mg bidmonitor for hallucinat ions Essential hypertension 94886070 I10 ASA 81 mg qdplavix 75 mg qdnot on medication monitor b/p and labs [id number] SAADIA GALLO NP [facility] [address] [address] 06/22/2021 14:22:09 06/28/2021 15:13:14 Vascular dementia without behavioral disturbance 9602148668 9197771 F01.50 discussed at length with karla.contin ue current medswill refer to psych for re evaluation - ? could benefit from med adjustment or prn med when she gets weepy and worked up.continu e to monitor for nowcontinu e supportive careHCP [facility] [id number] EARL Benites [facility] [address] [address] 07/04/2021 13:41:45 07/06/2021 10:51:31 Vascular dementia with behavioral disturbance 5305288580 86015 F01.51 continue seroquel 25 mg bidstart trazodone 12.5 mg bidNP re-eval trazodone start in 2 weeksconti nue trazodone 50 mg qhssupport sheldon careexpect declinemon itor moodpsych prn [id number] Trista Reza MD [facility] [address] [address] 08/11/2021 07:22:05 08/14/2021 15:34:35 Atherosclerosis of coronary artery without angina pectoris 9674953640 45476 I25.10 ASA 81 mg dailyclopi dogrel 75 mg dailywill monitor Essential hypertension 00312331 I10 no meds at this time 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 890039492 E11.9 no meds at this timewill monitor Vascular d ementia with behavioral disturbance 5248200007 21478 F01.51 will monitor and support as neededsee meds for mixed anxiety/de pressive disorderex pect decline Mixed anxi ety and depressive disorder 084819191 F41.8 fluvoxamin e 50 mg at hsmeclizin e 25 mg in morning and bid prnquetiap ine 25 mg bidtrazodo ne 50 mg at hs and 12.5 mg bidwill monitor with HDBH Osteoarthritis 210167675 M15.0 APAP 650 mg q4h prnwill monitor [id number] MATT ACOSTA [facility] [address] [place] [address] 09/06/2021 09:45:32 09/08/2021 10:25:32 Atherosclerosis of coronary artery without angina pectoris 9645699255 87593 I25.10 ASA 81 mg dailyclopi dogrel 75 mg dailywill monitor Essential hypertension 34438057 I10 no meds at this timemonito r bps as needed 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 282555081 E11.9 no meds at this timewill monitorlas t A1C 5.8 in 2020 Vascular d ementia with behavioral disturbance 9990708352 59853 F01.51 will monitor and support as neededsee meds for mixed anxiety/de pressive disorderex pect decline Mixed anxi ety and depressive disorder 721094509 F41.8 fluvoxamin e 50 mg at hsmeclizin e 25 mg in morning and bid prnquetiap ine 25 mg bidtrazodo ne 50 mg at hs and 12.5 mg bidmelaton in 5 mg qhsvitamin D3 dailywill monitor with [facility] Osteoarthritis [id number] M15.0 APAP 650 mg q4h prnwill monitor [id number] EARL MESA [facility] [address] [address] 10/05/2021 09:18:59 10/09/2021 14:53:08 Atherosclerosis of coronary artery without angina pectoris [id number] 67052 I25.10 ASA 81 mg dailyclopi dogrel 75 mg dailymonit or for s/smonitor labs prn Essential hypertension 80620446 I10 on no medsmonito r bps and need to add meds prn 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 853976828 E11.9 on no medsmonito r A1c prnmonitor for s/s of hyper/hypo glycemia Vascular d ementia with behavioral disturbance 6344245663 47378 F01.51 expect declinesup portive caremonito r mood and behaviorps cyh prn Mixed anxi ety and depressive disorder 207632383 F41.8 fluvoxamin e 50 mg at hsmeclizin e 25 mg in morning and bid prnquetiap ine 25 mg bidtrazodo ne 50 mg at hs and 12.5 mg bidmelaton in 5mg qhsmonitor mood and behaviorps cyh prnsupport [facility] Osteoarthritis 144720723 M15.0 APAP 650 mg q4h prnmonitor for pain control [id number] SAADIA GALLO NP [facility] [address] [address] 10/12/2021 09:52:33 10/16/2021 12:27:41 Recurrent falls 736126415 R29.6 Fall without injury 09/21.Neuro s, VS stable.PT OT eval and tx. prnEncoura ge use of walker. [id number] SAADIA GALLO NP [facility] [address] [address] 1 11/16/2021 09:01:53 11/21/2021 12:23:46 Fever 357147066 R50.9 unclear etiologyCh amari covid rapid and PCR nowViral swabCBC, CMP todayCl. liquids today, adv. as connie.zofran 4 q 6 prn x 2 wks.APAP prnUA C&S if able.(disc ussed with nsg., pt. ref. cath and poor cooperatio n with clean catch)BC X 2 if temp >101.5CXR if resp. sx., desaturati onTo ER if acute/cont . to decline (full code) Low blood pressure 55852 003 I95.9 Not on BP meds.Encou rage fluidsChec sinai CBC, CMP x 1 today.May consider IVF if intake poor, BP remains low.Monito r closelyVS daily and prn for now. [id number] Edil Barillas MD [facility] [address] [address] 12/13/2021 11:16:36 12/22/2021 13:45:45 Atherosclerosis of coronary artery without angina pectoris 6594649862 78057 I25.10 plavix 75 mg qdasa 81 mg qdmonitor for sxadvanced directives reviewed - Full Code Insomnia 270218999 G47.0 9 melatonin 5 mg qhsmonitor need to titrate Vascular d ementia with behavioral disturbance 0933550780 94119 F01.51 baseline dementia with behaviorss eroquel 25 mg bidmonitor for decline and behaviorsu pdate psych with concerns [id number] EARL SUMMERS [facility] [address] 01/05/2022 14:39:43 01/09/2022 14:03:36 Painful mouth 655273314 K13.79 will order anbesol qid prn monitor for resolution suspect from her pica as she has no teeth and no open sores noted [id number] FRIDA KOLOSKI, ST[employer] R[employer]ER [facility] [address] [address] 1 01/25/2022 09:09:15 01/29/2022 15:10:13 Abnormal urination 3178969394 9103 R39.198 urinating in cups and dumping on commode commode will be removed from room will send a urine as this is unusual for her monitor Recurrent falls 92876268 2 R29.6 PT/OT eval and treat monitor for safety [id number] EARL SUMMERS [facility] [address] [address] 01/29/2022 09:34:00 02/01/2022 13:37:40 Acute urinary tract infection 018149460 N30.20 growing gram + cocci still awaiting sensitivit iesmonitor for lab [id number] ALMA SUMMERSP [facility] [address] 02/02/2022 13:06:46 02/07/2022 15:22:24 Vascular dementia with behavioral disturbance 7778134992 11499 F01.51 expect decline supportive care hcp invoked monitor for safety Pica 58620347 F50.89 fluvoxamin e 50 mg q hs monitor behaviors psych eval and treat prn Essential hypertension 87018573 I10 ASA 81 mg qd plavix 75 mg qd not on medication monitor b/p and labs Gastroesop hageal reflux disease without esophagitis 798066781 K21.9 omeprazole 20 mg qd monitor symptoms [id number] SAADIA GALLO NP [place] [address] [facility] [place] [address] 02/15/2022 11:16:05 02/19/2022 12:23:38 Dizziness 324261444 R42 does not appear to be a new problem.di scussed with nsg., continue meclizine am dose, enc. use of prn dosesUncle ar if pt. did fall - pt reports she did fall, but not specifying if recent.Mari pect pt. may have seasonal allergies. Plan -Orthostat ic VS x 1 (pt is on seroquel, higher risk of ortho. hypotens.) Clean out wax from ears - debrox and flushAdd claritin 10 daily x 30 daysFlonas e nasal spray daily x 30 daysMonito r intake/hyd ration, safety Recurrent falls 92247306 2 R29.6 Pt reporting a fall a few days ago, but nsg. unaware of her falling. Pt. vague with details, very unclear if she did indeed fall.prior fall without injury 09/21.Plan as aboveMonit or mentationP T OT eval and tx. prnEncoura ge use of walker. [id number] ALMA SUMMERSP [facility] [address] [address] 02/23/2022 14:01:24 02/26/2022 14:40:40 Arthritis 2279663 M15.0 mostly noted in hands will order prednisone 30 mg qd x 5 days tylenol 650 mg q 4 hrs prn monitor for improvemen t [id number] SAADIA GALLO NP [facility] [address] [address] 02/27/2022 10:45:06 03/01/2022 11:16:22 Arthritis 0912522 M15.0 mostly noted in handsper pt., prednisone 30 mg qd x 5 days not making any difference Will try sched. APAP 650 mg tid so see if this may help.Monit or and adjust meds prn. 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 628454687 E11.9 no meds at this timewill monitor Gastroesop hageal reflux disease without esophagitis 591406957 K21.9 omeprazole 20 mg dailywill monitor Essential hypertension 90560780 I10 no meds at this time Atheroscle rosis of coronary artery without angina pectoris 6146153612 31575 I25.10 ASA 81 mg dailyclopi dogrel 75 mg dailywill monitor 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 fluvoxamin e 50 mg at hsmeclizin e 25 mg in morning and bid prn anxiety or dizzinessq uetiapine 25 mg bidtrazodo ne 50 mg at hs and 12.5 mg bidwill monitor with [facility] Osteoarthritis 083061224 M15.0 APAP 650 mg tid and q4h prnbiofree ze tid prnwill monitor [id number] Ferny Hernandez [facility] [address] [place] [address] 05/04/2022 14:52:06 05/10/2022 07:49:33 Vascular dementia with behavioral disturbance 5367194679 06463 F01.51 will monitor and support as neededsee meds for mixed anxiety/de pressive disorderex pect declinepsy ch consult as needed 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 062641086 E11.9 no meds at this timewill monitor labs as indicated Gastroesop hageal reflux disease without esophagitis 987550654 K21.9 omeprazole 20 mg QDwill monitor for s/s Essential hypertension 56668563 I10 no meds at this timenegati ve for orthostati cs [facility] for s/s Atheroscle rosis of coronary artery without angina pectoris 6699557778 64188 I25.10 ASA 81 mg QDclopidog rel 75 mg QDwill monitor Mixed anxi ety and depressive disorder 194722238 F41.8 fluvoxamin e 50 mg QHSmeclizi ne 25 mg in morning and bid prn anxiety or dizzinessq uetiapine 25 mg bidtrazodo ne 50 mg QHS and 12.5mg BIDmelaton in 5mg QHSmonitor mood/behav iorpsych consult as needed Osteoarthritis 099371858 M15.0 APAP 650 mg tid and q4h prncholeca lciferol 1000units QDbiofreez e tid prnwill monitor pain control and symptoms 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 04/27 [place] [facility] [place]PT/OT as indicatedm onitor neuro status for changesF/U with neuro as needed [id number] EARL SUMMERS [facility] [address] [place] [address] 05/08/2022 11:27:53 05/10/2022 08:02:40 Gastroesophageal reflux disease without esophagitis 535143155 K21.9 omeprazole 20 mg qd tums 1000 mg q 4 hrs prn simethicon e 160 mg qid prn monitor symptoms Pica 27669465 F50.89 fluvoxamin e 50 mg q hs monitor behaviors psych eval and treat prn Essential hypertension 86445831 I10 ASA 81 mg qd plavix 75 mg qd not on medication monitor b/p and labs Recurrent falls 05139520 2 R29.6 PT/OT eval and treat refuses to wait for assistance or have anyone near her monitor for safety Vascular d ementia with behavioral disturbance 8726950806 92610 F01.51 expect decline supportive care hcp invoked monitor for safety Hallucinations 3977609 R 44.2 seroquel 25 mg bid trazodone 12.5 mg bid and 50 mg q hs monitor for hallucinat ions psych to follow [id number] EARL SUMMERS [facility] [address] [address] 05/14/2022 12:07:54 05/16/2022 13:57:37 Recurrent falls 554254482 R29.6 PT/OT refuses to wait for assistance or have anyone near her monitor for safety Vascular d ementia with behavioral disturbance 4313691131 99247 F01.51 expect decline supportive care hcp invoked monitor for safety [id number] Trista Reza MD [facility] [address] [address] 1 06/29/2022 08:51:49 07/02/2022 14:40:39 Vascular dementia with behavioral disturbance 0234690214 14848 F01.51 will monitor and support as neededsee meds for mixed anxiety/de pressive disorderex pect decline Mixed anxi ety and depressive disorder 135856592 F41.8 fluvoxamin e 50 mg at hsmeclizin e 25 mg in morning and bid prn anxiety or dizzinessq uetiapine 25 mg bidtrazodo ne 50 mg at hs and 12.5 mg bidwill monitor with [facility] Gastroesop hageal reflux disease without esophagitis 793144022 K21.9 omeprazole 20 mg dailywill monitor Essential hypertension 78094593 I10 no meds at this time Atheroscle rosis of coronary artery without angina pectoris 2850212294 57896 I25.10 ASA 81 mg dailyclopi dogrel 75 mg dailywill monitor [id number] SAADIA GALLO NP [facility] [address] [address] 07/24/2022 15:51:28 07/31/2022 08:43:59 Pruritus of vagina 48654082 L29.3 Treat with diflucan 200 mg x 1 dose.Monit or? vaginal atrophy, if persists can try topical estrogen cream. 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 376944166 E11.9 carries diagnosis not on medication monitor for s/s of hypo/hyper glycemia monitor A1c Gastroesop hageal reflux disease without esophagitis 292319242 K21.9 omeprazole 20 mg qd simethicon e 160 mg qid prn monitor symptoms [id number] YANIV GRULLON PA-C [facility] [address] [address] 09/10/2022 13:54:03 09/21/2022 15:44:08 Weight loss 57339108 R63.4 Consider updating TSHKeep on PPI for nowConside r checking stool guaiacs for completene ssContinue house diet since last A1c 5.8Ongoing wt loss is expected as dementia progresses Monitor weightsRD also following Type 2 rinku betes mellitus with peripheral angiopathy 827859267 E11.51 Last A1c excellentC onsider annual monitoring Intracrani al hemorrhage 8981157 I62.9 No sequelaeRe commend keep SBP ~130 or less Coronary arteriosclerosis 14600673 I25.10 ASA, PlavixNot on B-marcell due to hypotensio nNo reported episodes of CPf/u prn Gastroesop hageal reflux disease without esophagitis 783760048 K21.9 Would consider trial change PPI to H2 marcell; however, given wt loss, will keep on board for now Dizziness 563629318 R42 MeclizineC onsider orthostati cs if not previously done Essential hypertension 20751599 I10 Monitor BPs and adjust meds prn Pica 47227324 F50.89 Fluvoxamin ePsych following Recurrent falls 19901546 2 R29.6 PT/OT prn Vascular d ementia with behavioral disturbance 3046752165 11495 F01.518 Psych followingD efer considerat ion of GDR to psych hematology oncology consultant Leukopenia 90899489 D72. 819 Can be exacerbate d by Seroquel useMonitor CBC Heart murmur 14295586 R0 1.1 Consider checking echo since still full code although not sure management would change given dementia Diastolic dysfunction 35 78223 I51.9 Euvolemic on exam Edema of l ower extremity 926664038 R60.0 None on exam Advance care planning 71 1921664 Z71.89 HCP invokedCon ore crusher revisiting goals of care [id number] [facility] [address] 10/17/2022 07:10:21 11/02/2022 13:47:10 Vascular dementia without behavioral disturbance 6069347380 8188608 F01.50 expect declinewil l monitor and supportsee meds for mixed anxiety/de pressive disorder Mixed anxi ety and depressive disorder 631423192 F41.8 fluvoxamin e 50 mg at hsmeclizin e 25 mg in morning and q8h prn anxiety or dizzinessq uetiapine 25 mg bidtrazodo ne 50 mg tidwill monitor with [facility] Coronary arteriosclerosis 77598140 I25.10 ASA 81 mg dailyclopi dogrel 75 mg dailywill monitor Essential hypertension 84787420 I10 no meds at this time Gastroesop hageal reflux disease without esophagitis 950268035 K21.9 pantoprazo le 20 mg dailywill monitor Orthostati c hypotension 24328757 I95.1 midodrine 10 mg bidwill monitor Chronic pain 51233307 G8 9.29 APAP 325 mg tidwill monitorPT/ OT prn [id number] YANIV GRULLON PA-C [facility] [address] [address] 10/23/2022 16:59:57 11/07/2022 19:45:25 Acute COVID-19 4122153737 U07.1 CrCl 39 per CC&G IBW-Paxlov id 150-100 mg po bid x 5 days-start when available- ok to continue Plavix despite risk of decreased efficacy-h old Seroquel x 7 days-ok to continue Midodrine - will monitor for bradycardi a-decrease Trazodone from 50 mg to 25 mg while on-ok to continue Melatonin despite risk of decreased efficacy [id number] YANIV GRULLON PA-C [facility] [address] [address] 10/24/2022 17:36:39 11/07/2022 19:50:40 Acute COVID-19 0787210880 U07.1 Paxlovid unavailabl emolnupira vir 800 mg po bid x 5 days; start when availableP recautions per facility protocolf/ u prn [id number] YANIV GRULLON PA-C [facility] [address] [address] 11/05/2022 13:57:50 11/07/2022 20:32:11 Suicidal thoughts 5430388 R45.851 No planUnable to contract for safetySeen by assistant professor of psychology whose input is appreciate d-recommen ds adding Remeron 7.5 mg po qhs to target depression and insomnia and to consider adding hydroxyzin e 10 mg po bid prn anxiety/ag itationGiv en that pt was recently off Seroquel and was only getting 50% of her Trazodone because of interactio ns with Paxlovid (which she did not end up getting,) will monitor her back on the regular doses rather than add medsGiven that she is described as decompensa ting around 1400 daily, will move 1400 meds to noonGiven difficulty with sleeping, will increase Melatonin from 5 to 10 mg po qhs-not increasing Trazodone since less side effects with MelatoninP er administra tion, will place patient on 15 checks as current behavior likely due to recent temporary med reductions /med holdsWould be great to get her off fluvoxamin e and onto something else since has many medication interactio ns and mostly targets OCD rather than depression Could consider adding clozapine, which is FDA-approv ed for the treatment of suicidalit y-would need to be cautious due to hx leukopenia although can also be seen with Seroquel, which she is onFollow clinically Psych also following Vascular d ementia with behavioral disturbance 7883055058 29626 F01.518 Psych followingu nable to tolerate SLUMSSeroq uel GDR would be contraindi cated at this time given risk of acute decompensa tion-also just had 1 week without any Seroquel, which was not tolerated [id number] YANIV GRLULON PA-C [facility] [address] [address] 11/06/2022 10:58:09 11/22/2022 11:03:13 Altered mental status 283323168 R41.82 15 checks through tomorrow am then reassessLa bs for am: CBC with diff, CMP, Mg, Phos, TSH, A1c, B12, Folate, Total Vit DLabs to be drawn annually in July: CBC with diff, CMP, TSH, H7h-ssq monitoring lipid panel despite use of atypical antipsycho tics since risks of statin therapy outweigh benefits in this patient so results would not change the management U/A with reflex to culture r/o UTI-may straight cath if needed-dx AMSSeroque l 50 mg po q 6 h prn paranoid delusions/ agitation/ anxiety x 14 days then review with provider to determine ongoing care-ok to give prn dose anytime relative to scheduled dose [id number] YANIV GRULLON PA-C [facility] [address] [address] 11/07/2022 15:21:23 11/27/2022 09:49:10 Altered mental status 310693578 R41.82 labs and U/A pendImprov ed todayConti nue to redirect and monitor for manic/psyc hotic behavior or SIPsych also following [id number] YANIV GRULLON PA-C [facility] [address] [address] 11/09/2022 14:53:54 12/03/2022 16:11:56 Altered mental status 961964907 R41.82 improvedU/ A negf/u prnpsych also following YANIV GRULLON PA-C [facility] [address] [address] 12/17/2022 11:40:47 01/09/2023 11:45:16 Weight loss 58559497 R63.4 consider d/c non-essent ial meds-Vit D3On PPI Low blood pressure 62932 003 I95.9 on midodrinea symptomati cmonitor and adjust meds prn Type 2 rinku betes mellitus with peripheral angiopathy 641339054 E11.51 Last A1c below goal - consider moving this diagnosis to historical -may have had psychotrop ic-induced DMFollow A1c annuallyNo t on EUFEMIA/ARB for renal protection due to hypotensio n Acute COVID-19 790158390 8 U07.1 s/p molnupirav irclinical ly recovered [id number] Trista Reza MD [facility] [address] [address] 02/06/2023 08:06:06 02/08/2023 12:00:00 Vascular dementia without behavioral disturbance 4204167740 6792190 F01.B0 expect declinewil l monitor and supportsee meds for mixed anxiety/de pressive disorder Mixed anxi ety and depressive disorder 531483169 F41.8 fluvoxamin e 50 mg at hsmeclizin e 25 mg in morning and q8h prn anxiety or dizzinessq uetiapine 25 mg bidtrazodo ne 50 mg tidwill monitor and support as needed 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 531029801 E11.9 no meds at this timewill monitor Essential hypertension 45528486 I10 no meds at this timewill continue to monitor Atheroscle rosis of coronary artery without angina pectoris 0188535063 86175 I25.10 ASA 81 mg dailyclopi dogrel 75 mg dailywill monitor [id number] SAADIA GALLO NP [facility] [address] [address] 03/28/2023 15:17:53 04/04/2023 15:17:07 Vascular dementia without behavioral disturbance 4583001454 5857834 F01.B0 Pleasantly forgetful, no behaviorsC ontinue current medsPsych eval prnmonitor mood and behaviors, adjust/tap er meds as needed Mixed anxi ety and depressive disorder 260116364 F41.8 No change with POCContinu e:fluvoxam ine 50 mg at hsmeclizin e 25 mg in morning and q8h prn anxiety or dizzinessq uetiapine 25 mg bidtrazodo ne 50 mg tidFollowe d by psych, adjust meds prnwill monitor and support as needed 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 022794870 E11.9 no meds at this timemonito r BMP, A1C prn Essential hypertension 61874409 I10 VSSnot on meds at this timeBP runs on the low side - currently on midodrine 10 mg bidcontinu e to monitor Atheroscle rosis of coronary artery without angina pectoris 3374372132 80353 I25.10 Continue:A SA 81 mg dailyclopi dogrel 75 mg dailymonit or CP status, labs [id number] SAADIA GALLO NP [facility] [address] [address] 04/17/2023 14:03:13 04/21/2023 18:56:05 Pruritus of vagina 25753975 L29.3 Appears she has had this issue before, treated with diflucan 200 mg x 1 dose.Will treat again with diflucan 200 mg x 1 dose, repeat another dose in 5 days.Monit or? vaginal atrophy, if persists can try topical estrogen cream, nsg. can see if pt. would be agreeable to applying it herself as she resists staff's assistance [id number] Rosamaria Perez NP [facility] [address] [address] 05/15/2023 16:18:48 05/17/2023 20:06:23 Pruritus of vagina 44221884 L29.3 Appears she has had this issue before, treated with diflucan 200 mg x 2 doses one week apart.like ly vaginal atrophy7/2 6 start estradiol cream 0.01% cream per vaginal area 3x/ week with staff assistance monitor for resolution [id number] Trista Reza MD [facility] [address] [address] 05/22/2023 09:32:19 05/24/2023 12:46:25 Vascular dementia without behavioral disturbance 4949567071 7695074 F01.B0 expect declinewil l monitor and supportsee meds for mixed anxiety/de pressive disorder Mixed anxi ety and depressive disorder 181144183 F41.8 fluvoxamin e 50 mg at hsmeclizin e 25 mg in morning and q8h prn anxiety or dizzinessq uetiapine 25 mg bidtrazodo ne 50 mg tidwill monitor and support as needed 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 210300284 E11.9 no meds at this timewill monitor Gastroesop hageal reflux disease without esophagitis 490941270 K21.9 pantoprazo le 20 mg dailywill monitor Essential hypertension 99036979 I10 no meds at this timewill continue to monitor Atheroscle rosis of coronary artery without angina pectoris 6997873472 26028 I25.10 ASA 81 mg dailyclopi dogrel 75 mg dailywill monitor Atrophic vaginitis 88527 000 N95.2 estradiol vaginal cream 3 times a weekwill monitor [id number] Rosamaria Perez NP [facility] [address] [address] 07/01/2023 14:22:36 07/05/2023 14:51:22 Dizziness 102011128 R42 07/01/23 fall without apparent injuries Meclizine prn orthostati cs today Recurrent falls 42471363 2 R29.6 PT/OT pr07/01/23 fall without apparent injuries Meclizine prnencoura ge po fluids Vascular d ementia with behavioral disturbance 1891285295 91461 F01.518 Psych followingc ont with support and redirectio nSeroquel 25 mg po bidfluvoxa mine 50 mg po bidmonitor [id number] SAADIA GALLO NP [address] [address] 07/16/2023 16:29:20 07/22/2023 10:11:50 Vascular dementia without behavioral disturbance 9611117034 1480871 F01.B0 Also followed by PsychConti magalie:trazod one 50 mg tidseroque l 25 mg bidfluvoxa mine 50 mg dailymelat onin 10 mg q HSMonitor mood, behaviors, adjust meds as needed.Exp ect continued decline. 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 362199176 E11.9 not meds at this timewill lyfiyczH4Q x1 Gastroesop hageal reflux disease without esophagitis 761706317 K21.9 On pantoprazo le 20 mg daily, consider dose reduction in futurewill monitor Essential hypertension 39476503 I10 no meds at this time, tends to run lowOn midodrine 10 mg bid - continueMo nitor VSCBC, CMP x 1 Atheroscle rosis of coronary artery without angina pectoris 5343265629 43831 I25.10 ASA 81 mg dailyclopi dogrel 75 mg dailyMonit or VS, CP status.CBC , CMP x 1 Atrophic vaginitis 07631 000 N95.2 was started on estradiol vaginal cream 3 times a week, but is no longer on the MARmonitor sx. [id number] 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 835317698 E11.9 no meds at this timewill monitor Atheroscle rosis of coronary artery without angina pectoris 4185502409 88306 I25.10 ASA 81 mg dailyclopi dogrel 75 mg dailywill monitor Orthostati c hypotension 33925769 I95.1 midodrine 10 mg bidwill monitor Essential hypertension 92273864 I10 no meds at this timewill continue to monitor [id number] Rosamaria Perez, GABE [facility] [address] 09/25/2023 15:27:12 10/02/2023 10:44:02 Vascular dementia without behavioral disturbance 6953077366 8398567 F01.B0 expect decline with forgetfuln esswill monitor and supportsee meds for mixed anxiety/de pressive disorder Mixed anxi ety and depressive disorder 089064489 F41.8 mood stable today, oftens tearfulflu voxamine 50 mg at hsmeclizin e 25 mg in morning and q8h prn dizzinessq uetiapine 25 mg bidtrazodo ne 50 mg tidwill monitor and support as needed 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 [id number] SAADIA GALLO NP [facility] [address] 10/31/2023 11:04:09 11/05/2023 11:21:19 Vascular dementia without behavioral disturbance [id number] 6760756 F01.B0 expect decline with forgetfuln esswill monitor and supportsee meds for mixed anxiety/de pressive disorderSL UMS attempted 10/31/23, pt. 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 354331653 E11.9 no meds at this timediet controlled A1C prnwill monitor Atheroscle rosis of coronary artery without angina pectoris 7256093530 23754 I25.10 Continue:A SA 81 mg dailyclopi dogrel 75 mg dailywill monitor Orthostati c hypotension 83503037 I95.1 BP tends to run on the low side, continue midodrine 10 mg bidwill monitor Essential hypertension 74594004 I10 no meds at this time, see above, BP runs lowwill continue to monitor Gastroesop hageal reflux disease without esophagitis 516164446 K21.9 remains on pantoprazo le 20 mg dailywill monitor Atrophic vaginitis 76469 000 N95.2 Currently with itch and irritation - restart estradiol vaginal cream 3 times a week, nsg. to assist with applicatio nmonitor sx. [id number] Rosamaria Perez NP [address] [address] 11/25/2023 08:53:04 11/28/2023 13:54:54 Vascular dementia without behavioral disturbance [id number] 0587045 F01.B0 expect decline with forgetfuln esswill monitor and supportsee meds for mixed anxiety/de pressive disorderSL UMS attempted 10/31/23, pt. did not tolerate Mixed anxi ety and depressive disorder 347546273 F41.8 mood stable today, weepy at timespsych followscon tinue:fluv oxamine 50 mg at hsquetiapi ne 25 mg bidtrazodo ne 50 mg tidwill monitor and support as needed Orthostati c hypotension 04612016 I95.1 BP tends to run on the low side at baseline but stable high today,cont inue midodrine 10 mg bidwill monitor11/25 check orthostati c bp x1 today Cough 68692571 R05.9 cough reported by nursing over weekend but no cough noted today2/5st art robitussin 10 ml po q 4 hours prn cough x 30 daysstart covid test daily x 2 days.monit or [id number] Rosamaria Perez NP [facility] [address] 11/27/2023 11:55:39 12/02/2023 14:23:42 Vascular dementia without behavioral disturbance 4390403273 2306316 F01.B0 expect decline with forgetfuln esswill monitor and supportsee meds for mixed anxiety/de pressive disorderSL UMS attempted 10/31/23, pt. did not tolerate Atrophic vaginitis 80385 000 N95.2 Currently with itch and irritation -11/27 restart estradiol vaginal cream 3 times a week, nsg. to assist with applicatio nmonitor sx. Essential hypertension 81311491 I10 no meds at this timewill continue to monitor Dizziness 144627923 R42 Meclizine prnincreas e 10 mg midodrine from bid to tid, hold sbp>120ort hostatics today Cough 03718083 R05.9 cough reported by nursing and pt but no cough noted today 2/5start robitussin 10 ml po q 4 hours prn cough x 30 daysstart covid test daily x 2 days.covid neg today 11/27 cont as abovemonit or [id number] Trista Reza MD [facility] [address] 01/03/2024 07:33:26 01/06/2024 15:58:53 Vascular dementia without behavioral disturbance 1979686400 9842993 F01.B0 expect declinewil l monitor and supportsee meds for mixed anxiety/de pressive disorder Mixed anxi ety and depressive disorder 026250122 F41.8 fluvoxamin e 50 mg at hsmeclizin e 25 mg in morning and q8h prn anxiety or dizzinessq uetiapine 25 mg bidtrazodo ne 50 mg tidwill monitor and support as needed 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 350691479 E11.9 no meds at this timewill monitor Gastroesop hageal reflux disease without esophagitis 998847216 K21.9 pantoprazo le 20 mg dailywill monitor Chronic pain 09327031 G8 9.29 APAP 325 mg tidwill monitorPT/ OT prn Orthostati c hypotension 08686376 I95.1 midodrine 10 mg bidwill monitor Coronary arteriosclerosis 71180449 I25.10 ASA 81 mg dailyclopi dogrel 75 mg dailywill monitor [id number] MICHAEL COWART, [employer] [address] [address] 02/27/2024 10:52:12 03/02/2024 16:25:48 Vascular dementia without behavioral disturbance 7234434630 4682796 F01.B0 expect declinewil l monitor and supportsee meds for mixed anxiety/de pressive disorder Mixed anxi ety and depressive disorder 766727210 F41.8 fluvoxamin e 50 mg at hsmeclizin e 25 mg in morning and q8h prn anxiety or dizzinessq uetiapine 25 mg bidtrazodo ne 50 mg tidwill monitor and support as needed 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 Coronary arteriosclerosis 11071257 I25.10 ASA 81 mg dailyclopi dogrel 75 mg dailywill monitor Atrophic vaginitis 83149 000 N95.2 Currently with itch and irritation -Continue estradiol vaginal cream q HS for three times a week, assist with applicatio nQuestion possible lichen sclerosus- will try clobetasol 0.05% cream to external vaginal/vu lvar area BID for 2 weeks and will re-evaluat ion.Will also attempt physically exam as patient cooperate. monitor sx. Essential hypertension 08239343 I10 no meds at this timewill continue to monitor Dizziness 078370632 R42 Meclizine prnContinu e midodrine 10 mg tid, hold sbp>120ort hostatics PRN. Candidiasis of mouth 797 82688 B37.0 Start nystatin swish and swallow 5 ml PO QID for 14 days.monit or the improvemen t. [id number] Rosamaria Perez NP [facility] [address] [address] 03/09/2024 15:57:28 03/11/2024 09:33:01 Vascular dementia with behavioral disturbance 9735647503 91253 F01.518 Psych followingc ont with support and redirectio nSeroquel 25 mg po bid/20 discontinu e fluvoxamin e qhs and after three days start zoloft 25 mg po qd.monitor for s/s of depression [id number] Rosamaria Perez NP [facility] [address] [address] 03/25/2024 13:15:01 03/30/2024 19:29:46 Osteoarthritis of midtarsal joint of right foot 8739758297 038303 M19.071 5pt has ecchymosis to right midfoot to toesno acute abnormalit ies on xray done today, but does show CONCLUSION : Mild osteopenia and mild interphala ngeal osteoarthr itis without acute abnormalit y.cont tylenol tid for pain working well [id number] Rosamaria Perez NP [facility] [address] 04/02/2024 08:42:08 04/07/2024 09:51:27 Osteoarthritis of midtarsal joint of right foot 2119241017 074228 M19.071 5pt has ecchymosis to right midfoot to toesno acute abnormalit ies on xray from 03/25, but does show CONCLUSION : Mild osteopenia and mild interphala ngeal osteoarthr itis without acute abnormalit y.04/02/24 will swelling and resolving ecchymosis todayWill increase to tylenol 1000 mg po tid x 3 weeks then resume regular dose of 650 mg po tid.Will add diclofenac gel 1% topically to anterior foot TID for pain.She is on aspirin 81 mg po daily.Will recommend ice and elevation TID and change of shoe to sock as it is causing an indention to the swollen foot x 2 weeksmonit or for comfort and assess if further studies needed if not resolved in 2-3 weeks [id number] Rosamaria Perez NP [address] [address] 04/03/2024 11:41:26 04/07/2024 10:26:22 Acute COVID-19 9663734513 U07.1 04/03/24 startmolnu piravir 800 mg po bid x 5 days (no recent labs and not able to draw today, and interacts with medication s so will favor [facility] for choice)bernard zonate 150 mg po tid x 7 days and then prn q 8 hours cough x 21 daysrobitu ssin 10 ml po q 4 hours cough x 21 dayscbc and bmp on saturday x 1encourage po fluidsisol ation per facilitymo nitor for sequelae Osteoarthr itis of midtarsal joint of right foot 8709753803 458471 M19.071 5pt has ecchymosis to right midfoot to toesno acute abnormalit ies on xray from 03/25, but does show CONCLUSION : Mild osteopenia and mild interphala ngeal osteoarthr itis without acute abnormalit y.04/02/24 will swelling and resolving ecchymosis todayWill increase to tylenol 1000 mg po tid x 3 weeks then resume regular dose of 650 mg po tid.Will add diclofenac gel 1% topically to anterior foot TID for pain.She is on aspirin 81 mg po daily.Will recommend ice and elevation TID and change of shoe to sock as it is causing an indention to the swollen foot x 2 weeksmonit or for comfort and assess if further studies needed if not resolved in 2-3 weeks04/03 cont above plan with pain management above improved [id number] GABE Reeves[address] [address] 04/06/2024 08:13:43 04/09/2024 08:51:16 Acute COVID-19 9030234957 U07.1 04/03/24 startmolnu piravir 800 mg po bid x 5 days (no recent labs and not able to draw today, and interacts with medication s so will favor [facility] for choice)bernard zonate 150 mg po tid x 7 days and then prn q 8 hours cough x 21 daysrobitu ssin 10 ml po q 4 hours cough x 21 dayscbc and bmp on saturday x 1encourage po fluidsisol ation per facilitymo nitor for sequelae add zofran 4 mg po q 6 hours prn04/06 [facility] not in yet, pharmacy looking into Osteoarthr itis of midtarsal joint of right foot 5757544277 325706 M19.071 03/25 pt has ecchymosis to right midfoot to toesno acute abnormalit ies on xray from 03/25, but does show CONCLUSION : Mild osteopenia and mild interphala ngeal osteoarthr itis without acute abnormalit y.04/02/24 will swelling and resolving ecchymosis todayWill increase to tylenol 1000 mg po tid x 3 weeks then resume regular dose of 650 mg po tid.add diclofenac gel 1% topically to anterior foot TID for pain.She is on aspirin 81 mg po daily.Will recommend ice and elevation TID and change of shoe to sock as it is causing an indention to the swollen foot x 2 weeksmonit or for comfort and assess if further studies needed if not resolved in 2-3 weeks04/03 pt went to ER for swollen foot and started on keflex 500 mg po qid for 7 days04/06 agree with above from ERwill add zofran for upset stomach q 6 hours prn nauseamoni tor for s/s of worsening infection Viral conjunctivitis 456 14082 B30.9 likely related to covid with viral pink left eye and right eye dry04/06 start art tears 1 gtt to both eyes bid x 10 dayswill monitor closely for need for opthal ointmonito r [id number] Rosamaria Perez NP [address] [address] 04/09/2024 15:01:23 04/15/2024 15:58:15 Viral conjunctivitis 74485750 B30.9 resolvingl ikely viral now resolvingc ont art tears 1 gtt to both eyes bid x 10 days totalwill monitor closely for need for opthal ointmonito r Acute COVID-19 325124323 8 U07.1 resolved tested positive, tested neg on 04/08molnup iravir 800 mg po bid x 5 days (no recent labs and not able to draw today, and interacts with medication s so will favor [facility] for choice)bernard zonate 150 mg po tid x 7 days and then prn q 8 hours cough x 21 daysrobitu ssin 10 ml po q 4 hours cough x 21 daysencour age po fluidsisol ation per facilitymo nitor for sequelaezo todd 4 mg po q 6 hours prnmonitor Osteoarthr itis of midtarsal joint of right foot 8284979453 498132 M19.071 03/25 pt has ecchymosis to right midfoot to toes resolvingn o acute abnormalit ies on xray from 03/25, but does show CONCLUSION : Mild osteopenia and mild interphala ngeal osteoarthr itis without acute abnormalit y.conttyle nol 1000 mg po tid x 3 weeks total, then resume regular dose of 650 mg po tid.diclof enac gel 1% topically to anterior foot TID for pain.She is on aspirin 81 mg po daily.ice and elevation TID and change of shoe to sock as it is causing an indention to the swollen foot x 2 weeksmonit or for comfort and assess if further studies needed if not resolved in 2-3 weeksfinis h keflex 500 mg po qid for 7 days to end 04/12zofran for upset stomach q 6 hours prn nauseamoni tor for s/s of worsening infection Pruritus of vagina 75327 003 L29.3 requests itching creamresta rt clobestaso l ext cream 0.05% dime size to vag area bid for vag itching x 14 dayscontes tradiol cream 0.01% cream per vaginal area 3x/ week with staff assistance monitor for resolution [id number] Rosamaria Perez NP [address] [address] 04/10/2024 12:40:48 04/15/2024 16:31:23 Acute COVID-19 6071017335 U07.1 resolved, tested neg on 04/08 and consider recovered in facility tested positive 04/10 contmolnup iravir 800 mg po bid x 5 daysbenzon ate 150 mg po tid x 7 days and then prn q 8 hours cough x 21 daysrobitu ssin 10 ml po q 4 hours cough x 21 daysencour age po fluidsisol ation per facilitymo nitor for sequelaezo todd 4 mg po q 6 hours prnmonitor Viral conjunctivitis 452 02557 B30.9 resolved clinically likely viral now resolvingc ont art tears 1 gtt to both eyes bid x 10 days totalwill monitor closely for need for opthal ointmonito r Osteoarthr itis of midtarsal joint of right foot 9153086487 157446 M19.071 03/25 pt noted to have ecchymosis to right midfoot to toes resolvingn o acute abnormalit ies on xray from 03/25, but does show CONCLUSION : Mild osteopenia and mild interphala ngeal osteoarthr itis without acute abnormalit y.04/10 plan conttyleno l 1000 mg po tid x 3 weeks total, then resume regular dose of 650 mg po tid.diclof enac gel 1% topically to anterior foot TID for pain.She is on aspirin 81 mg po daily alreadyshe is often non compliant- ice and elevation TID and change of shoe to sock as it is causing an indention to the swollen foot x 2 weeksmonit or for comfort and assess if further studies needed if not resolved in 2-3 weeksfinis h keflex 500 mg po qid for 7 days to end 04/12zofran for upset stomach q 6 hours prn nauseamoni tor for s/s of worsening infection [id number] Marlena Diego MD [address] [address] 05/04/2024 20:35:58 05/21/2024 16:13:24 Vascular dementia without behavioral disturbance 7998038437 6291757 F01.B0 Remains mild at baselineCo ntinue sertraline 25 mg qd, quetiapine 25 mg BID, trazadone 50 mg TID, and melatonin 10 mg qhs.Contin ue supportive care, expect decline.HC P invokedMon itor mood and behaviors. Psych follows. Mixed anxi ety and depressive disorder 659737249 F41.8 As above. 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 t controlled .No fingerstic ks needed except for sxs.Monito r HgA1C yearly. Gastroesop hageal reflux disease without esophagitis 639951996 K21.9 No current sxs.Contin ue pantoprazo le 20 mg qdMonitor GI sxs. Chronic pain 84595145 G8 9.29 Continue APAP 325 mg TIDUse PT/OT prn as insurance allows.Mon itor sxs. Orthostati c hypotension 77739605 I95.1 Continue midodrine 10 mg TID, hold for SBP>120Mon itor VSS. Coronary arteriosclerosis 73269095 I25.10 No recent sxs.Contin ue ASA 81 mg qd and clopidogre l 75 mg qdMonitor and f/u prn Atrophic vaginitis 59833 000 N95.2 No current c/oContinu e estradiol vaginal cream 1 gm qhs 3x/wk.Used clobetasol 0.05% cream to external vaginal/vu lvar area BID for 2 weeks in February, unclear if helped.Mon itor sxs. Essential hypertension 37960506 I10 With low BP on no meds.Monit or as above. Dizziness 223978254 R42 Tx for orthostasi s and continue meclizine 25 mg qd and TID prn.Monito r sxs. [id number] Rosamaria Perez NP [address] [address] 06/24/2024 15:52:38 06/26/2024 13:27:36 Vascular dementia without behavioral disturbance 9845565555 5425454 F01.B0 Remains mild at baselineCo ntinuesert raline 25 mg qdquetiapi ne 25 mg BIDtrazado ne 50 mg TIDmelaton in 10 mg qhs.Contin ue supportive care, expect decline.HC P invokedMon itor mood and behaviors. Psych follows. Mixed anxi ety and depressive disorder 112351917 F41.8 As above. 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 t controlled .No fingerstic ks needed except for sxs.Monito r HgA1C yearly. Gastroesop hageal reflux disease without esophagitis 820736949 K21.9 No current sxs.Contin uepantopra zole 20 mg qdMonitor GI sxs. Chronic pain 09847757 G8 9.29 ContinueAP AP 325 mg TIDUse PT/OT prn as insurance allows.Mon itor sxs. Orthostati c hypotension 98453038 I95.1 Continuemi dodrine 10 mg TID, hold for SBP>120Mon itor VSS. Coronary arteriosclerosis 29482224 I25.10 No recent sxs.Contin ueASA 81 mg qdclopidog rel 75 mg qdMonitor and f/u prn Atrophic vaginitis 62844 000 N95.2 No current c/oContinu e estradiol vaginal cream 1 gm qhs 3x/wk.Used clobetasol 0.05% cream to external vaginal/vu lvar area BID for 2 weeks in February, unclear if helped.Mon itor sxs. Ecchymosis 999350489 R58 ecchymosis to left 2nd, 3rd, and 4th toes notedno swelling redness or painpossib ly related to fall on 06/21?no xray needed at this timeice prntyl prnmonitor for changes Recurrent falls 12279062 2 R29.6 PT/OT pr06/21/24 fall with question relation to this ecchymosis now showinghx of orthostasi sMeclizine prnencoura ge po fluids [id number] Rosamaria Perez NP [facility] [address] 06/29/2024 11:06:07 07/01/2024 09:05:20 Vascular dementia without behavioral disturbance 8370787392 1021743 F01.B0 Remains mild at baselineCo ntinuesert raline 25 mg qdquetiapi ne 25 mg BIDtrazado ne 50 mg TIDmelaton in 10 mg qhs.Contin ue supportive care, expect decline.HC P invokedMon itor mood and behaviors. Psych follows. Conjunctivitis 9876415 H 10.9 erythromci n 0.5% oint tid 1/2 inch ribbon to both eyes tid x 5 daysmonito r [id number] Rosamaria Perez NP [address] [address] 07/02/2024 08:42:02 07/03/2024 13:11:52 Vascular dementia without behavioral disturbance 2155641122 1690906 F01.B0 Remains mild at baselineCo ntinuesert raline 25 mg qdquetiapi ne 25 mg BIDtrazado ne 50 mg TIDmelaton in 10 mg qhs.Contin ue supportive care, expect decline.HC P invokedMon itor mood and behaviors. Psych follows. Conjunctivitis 1171305 H 10.9 erythromci n 0.5% oint tid 1/2 inch ribbon to both eyes tid x 5 days totaleye wash and warm compress bidmonitor Ecchymosis 331694011 R58 resolvinge cchymosis to left 2nd, 3rd, and 4th toes notedno swelling redness or painpossib ly related to fall on 06/21?no xray needed at this timeice prntyl prnmonitor for changes Recurrent falls 74595213 2 R29.6 PT/OT pr06/21/24 fall with question relation to this ecchymosis now showinghx of orthostasi sMeclizine prnencoura ge po fluids Mixed anxi ety and depressive disorder 530937200 F41.8 As above. 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 ordered on 07/02 Gastroesop hageal reflux disease without esophagitis 344039314 K21.9 No current sxs.Contin uepantopra zole 20 mg qdMonitor GI sxs. Chronic pain 16985687 G8 9.29 ContinueAP AP 325 mg TIDUse PT/OT prn as insurance allows.Mon itor sxs. Orthostati c hypotension 07806143 I95.1 low bp at times and midodrine seems to help with dizzinessC ontinuemid odrine 10 mg TID, hold for SBP>120Mon itor VSS. Coronary arteriosclerosis 99364634 I25.10 No recent sxs.Contin ueASA 81 mg qdclopidog rel 75 mg qdMonitor and f/u prn Atrophic vaginitis 62343 000 N95.2 No current c/oContinu e estradiol vaginal cream 1 gm qhs 3x/wk.Used clobetasol 0.05% cream to external vaginal/vu lvar area BID for 2 weeks in February, unclear if helped.Mon itor sxs. Pain of ri ght shoulder joint 4256748536 1997018 M25.511 pt co right shoulder pain thisdxx able to move and no new injury? arthritic in naturecont tyl po tid07/02 start diclofenac 1 % topically to right shoulder in am and q 8 hours prn painconsid er xray if pain persists [id number] SAADIA GALLO NP [facility] [address] [address] 07/28/2024 08:58:52 07/29/2024 13:31:58 Recurrent falls 224218350 R29.6 Fall 07/27, found on the floor beside her bed, says she slid off the bed trying to get into the w/c.VS and neuros reported as stable so far.No injury reported.P t. currently with a headache, sched. and prn available for pain.Andreas nue to monitor neuros and VS closely, to ER if continues to decline.PT OT eval and tx. prnEncoura ge use of walker.Mon itor safety. [id number] Rosamaria Perez NP [facility] [address] [address] 09/03/2024 13:25:45 09/04/2024 11:06:44 Recurrent falls 234187696 R29.6 unwitnesse d fall, found on the floor beside her bed, says she was trying to stand upVS and neuros reported as stable so far.No injury reported, seentyl prn available for pain.Andreas nue to monitor neuros and VS closely, to ER if continues to decline.PT OT eval and tx. prnEncoura ge use of walker.Mon itor safety. Vascular d ementia without behavioral disturbance 6936661038 3569092 F01.B0 Remains mild at baselineCo ntinuesert raline 25 mg qdquetiapi ne 25 mg BIDtrazado ne 50 mg TIDmelaton in 10 mg qhs.Contin ue supportive care, expect decline.HC P invokedMon itor mood and behaviors. Psych follows. Pain of ri ght shoulder joint 1689571184 3689999 M25.511 with baseline right shoulder arthritisc onttyl po tiddiclofe nac 1 % topically to right shoulder in am and q 8 hours prn painconsid er xray if pain persists Mixed anxi ety and depressive disorder 406990137 F41.8 As above. 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 ordered on 07/02 Gastroesop hageal reflux disease without esophagitis 902010417 K21.9 No current sxs.Contin uepantopra zole 20 mg qdMonitor GI sxs. Chronic pain 76267977 G8 9.29 ContinueAP AP 325 mg TIDUse PT/OT prn as insurance allows.Mon itor sxs. Orthostati c hypotension 26269177 I95.1 low bp at times and midodrine seems to help with dizzinessC ontinuemid odrine 10 mg TID, hold for SBP>120Mon itor VSS. Coronary arteriosclerosis 18923418 I25.10 No recent sxs.Contin ueASA 81 mg qdclopidog rel 75 mg qdMonitor and f/u prn Atrophic vaginitis 97327 000 N95.2 No current c/oContinu e estradiol vaginal cream 1 gm qhs 3x/wk.Paula tor sxs. [id number] Rosamaria Perez NP [address] [address] 09/14/2024 11:08:26 09/16/2024 08:35:00 Vascular dementia without behavioral disturbance 8199046708 7396503 F01.B0 Remains mild at baselineCo ntinuesert raline 25 mg qdquetiapi ne 25 mg BIDtrazado ne 50 mg TIDmelaton in 10 mg qhs.Contin ue supportive care, expect decline.HC P invokedMon itor mood and behaviors. Psych follows. Chronic pain 34504862 G8 9.29 ContinueAP AP 325 mg TIDUse PT/OT prn as insurance allows.Mon itor sxs. Pain in left foot 058165 6805 86212 M79.672 left foot pain with bruising to forefoot and metatarsal s with tenderness to touchtyl TID scheduled pruzuez47/ 25 will get xray to ro fx today\paula tor [id number] Rosamaria Perez NP [facility] [address] [address] 09/21/2024 15:43:54 09/22/2024 09:35:23 Pain in left foot 7272364909 77988 M79.672 resolvingl eft foot pain with bruising to forefoot and metatarsal s with tenderness to touchtyl TID scheduled alreadyxra y done, no fractures notedmonit or Vascular d ementia without behavioral disturbance 6612082476 4268454 F01.B0 Remains mild at baselineCo ntinuesert raline 25 mg qdquetiapi ne 25 mg BIDtrazado ne 50 mg TIDmelaton in 10 mg qhs.Contin ue supportive care, expect decline.HC P invokedMon itor mood and behaviors. Psych follows. Chronic pain 19746833 G8 9.29 ContinueAP AP 325 mg TIDUse PT/OT prn as insurance allows.Mon itor sxs. [id number] Rosamaria Perez NP [facility] [address] [address] 09/30/2024 10:54:13 10/02/2024 14:09:54 Vascular dementia without behavioral disturbance 5362507965 8028923 F01.B0 expect decline with forgetfuln ess, mostly trinidadian speakingwi ll monitor and supportsee meds for mixed anxiety/de pressive disorderSL UMS attempted 10/31/23, pt. did not tolerate Atrophic vaginitis 42846 000 N95.2 with itch and irritation at times-cont estradiol vaginal cream 3 times a week, nsg. to assist with applicatio nmonitor sx. Essential hypertension 65855375 I10 no meds at this timewill continue to monitor Dizziness 841062662 R42 dizziness seems to be resolving on below regimenMec lizine prn10 mg midodrine from tid, hold sbp>120mon itor Mixed anxi ety and depressive disorder 455215567 F41.8 mood stable today, weepy at timespsych followscon tinue:zolo ft 25 mg poqd112/01 decrease quetiapine 25 mg bid to 12.5 mg po bid for gdrtrazodo ne 50 mg tidwill monitor and support as needed Orthostati c hypotension 46070385 I95.1 BP tends to run on the low side at baseline but stable high today,cont inue midodrine 10 mg bidwill monitor11/25 check orthostati c bp x1 today 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 351245820 E11.9 no meds at this timediet controlled A1C prnwill monitor Atheroscle rosis of coronary artery without angina pectoris 6310129413 22194 I25.10 Continue:A SA 81 mg dailyclopi dogrel 75 mg dailywill monitor Gastroesop hageal reflux disease without esophagitis 407011153 K21.9 omeprazole 20 mg dailywill monitor Recurrent falls 99213901 2 R29.6 unwitnesse d fall, found on the floor beside her bed, says she was trying to stand upVS and neuros reported as stable so far.No injury reported, seentyl prn available for pain.Andreas nue to monitor neuros and VS closely, to ER if continues to decline.PT OT eval and tx. prnEncoura ge use of walker.Mon itor safety. Pain of ri ght shoulder joint [id number] 8104230 M25.511 with baseline right shoulder arthritisc onttyl po tiddiclofe nac 1 % topically to right shoulder in am and q 8 hours prn painconsid er xray if pain persists Chronic pain 28970819 G8 9.29 ContinueAP AP 325 mg TIDUse PT/OT prn as insurance allows.Mon itor sxs. Coronary arteriosclerosis 21557578 I25.10 No recent sxs.Contin ueASA 81 mg qdclopidog rel 75 mg qdMonitor and f/u prn Conjunctivitis 7416770 H 10.9 erythromci n 0.5% oint tid 1/2 inch ribbon to both eyes tid x 5 days totaleye wash and warm compress bidmonitor Ecchymosis 230013000 R58 resolvinge cchymosis to left 2nd, 3rd, and 4th toes notedno swelling redness or painpossib ly related to fall on 06/21?no xray needed at this timeice prntyl prnmonitor for changes [id number] SAADIA GALLO NP [facility] [address] [address] 10/15/2024 12:05:23 10/16/2024 11:53:02 Candidiasis of mouth 33577725 B37.0 ?mildadd nystatin S&S 5 ml qid x 14 daysmonito r sx [id number] Rosamaria Perez NP [facility] [address] [address] 11/09/2024 13:33:06 11/11/2024 10:41:49 Vascular dementia without behavioral disturbance [id number] 0397382 F01.B0 expect decline with forgetfuln ess, mostly trinidadian speakingwi ll monitor and supportsee meds for mixed anxiety/de pressive disorderSL UMS attempted 10/31/23, pt. did not tolerate Atrophic vaginitis 52492 000 N95.2 with baseline itch and irritation at timesconte stradiol vaginal cream 3 times a week, nsg. to assist with applicatio nmonitor sx. 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 Pain of ri ght shoulder joint 0439573784 1409994 M25.511 stable with baseline right shoulder arthritisc onttyl po tiddiclofe nac 1 % topically to right shoulder in am and q 8 hours prn painconsid er xray if pain persists Chronic pain 11848339 G8 9.29 ContinueAP AP 325 mg TIDUse PT/OT prn as insurance allows.Mon itor sxs. [id number] Edil Barillas MD [address] [address] 12/26/2024 11:32:26 12/29/2024 09:50:35 Essential hypertension 15837082 I10 with hx of hypotensio n requiring midodrinen o meds at this timemonito r bp Orthostati c hypotension 22100821 I95.1 see aboveconti nue midodrine 10 mg bidwill monitor Gastroesop hageal reflux disease without esophagitis 711024043 K21.9 omeprazole 20 mg qdmonitor for sx Recurrent falls 70046024 2 R29.6 supportive careEncour age use of walker.Mon itor safety. Vascular d ementia with behavioral disturbance 9767726710 78219 F01.B18 baseline dementiaco ntinue supportive caremonito r for behaviorsc urrently requiring seroquelps [facility] eval prn [id number] Rosamaria Perez NP [facility] [address] 02/26/2025 08:04:12 03/02/2025 13:58:46 Vascular dementia with behavioral disturbance 8134160989 29369 F01.B18 baseline dementia with behaviors and picacontin ue supportive caremonito r for behaviorsc urrently requiring seroquelps ych eval prn Essential hypertension 93322987 I10 with hx of hypotensio n requiring midodrine for orthostasi smidodrine 10 mg po tid, hold for sbp >120monito r bp Orthostati c hypotension 46932132 I95.1 see aboveconti nue midodrine 10 mg bidwill monitor Gastroesop hageal reflux disease without esophagitis 327329313 K21.9 omeprazole 20 mg qdmonitor for sx Recurrent falls 42804102 2 R29.6 supportive careEncour age use of walker.Mon itor safety. Pica 82321056 F50.83 [id number] pt with hx of pica and continues with behaviorss he is seen and admits to eating plastic and paper regularly lately5 no plastic or paper eating reinforced with pt with interprete r5 remove plastic and paper off try for meals02/26 start providing gum to chew on to satisfy chewing need as she reports she was a tobacco chewer years ago [id number] Rosamaria Perez NP [facility] [address] [address] 04/07/2025 12:13:11 04/14/2025 20:51:14 Vascular dementia with behavioral disturbance 9536368670 48208 F01.B18 baseline dementia with behaviors and picacontin ue supportive caremonito r for behaviorsc urrently requiring seroquelps ych eval prn Essential hypertension 00976732 I10 bp labilewith hx of hypotensio n requiring midodrine for orthostasi smidodrine 10 mg po tid, hold for sbp >120monito r bp Orthostati c hypotension 55132383 I95.1 see aboveconti nue midodrine 10 mg bidencoura ge fluidswill monitor Recurrent falls 11779632 2 R29.6 supportive careEncour age use of walker.Mon itor safety. Dizziness 970200066 R42 hx of vertigoMec lizine prn10 mg midodrine from tid, hold sbp>120mon itor [id number] Rosamaria Perez NP [facility] [address] [address] 04/29/2025 11:01:18 05/03/2025 15:30:22 Vascular dementia with behavioral disturbance 8762862365 82673 F01.B18 baseline dementia with behaviors and picacontin ue supportive caremonito r for behaviorsc urrently requiring seroquel 12.5 mg po bid with good effectpsyc h eval prn Essential hypertension 03021797 I10 bp labilewith hx of hypotensio n requiring midodrine for orthostasi smidodrine 10 mg po tid, hold for sbp >120monito r bp Orthostati c hypotension 32126110 I95.1 see aboveconti nue midodrine 10 mg bidencoura ge fluidswill monitor Recurrent falls 44529321 2 R29.6 supportive careEncour age use of walker.Mon itor safety.wit h dementia often attempts to get up on her own and is forgetful Dizziness 057877955 R42 hx of vertigoMec lizine prn10 mg midodrine from tid, hold sbp>120mon itor Pica 81751869 F50.83 6739740 pt with hx of pica and continues with behaviorss he is seen and admits to eating plastic and paper regularly latelyno plastic or paper eating reinforced with pt with interprete remove plastic and paper off try for mealsprovi de gum to chew on to satisfy chewing need as she reports she was a tobacco chewer years ago Gastroesop hageal reflux disease without esophagitis 666364401 K21.9 omeprazole 20 mg qdmonitor for sx Health Concerns Section Related Observation LastModified by Organization Detai ls LastModified Time None Recorded Concern Status LastModified by Organization Details LastModified Time None Recorded Advance Directives Directive Y: FULL CODE/use dialysis, n utrition and hydration Payers Insurance Date Sequence Insurance Name Policy Number Policy Moon Covered Member ID Moon Member ID Guarantor Name 09/04/2024 1 [facility] - DOS PRIOR TO 2023 - DUAL ELIGIBLE (MEDICARE REPLACEMENT/AD VANTAGE - HMO) Alex Kam [id number] Alex Kam 04/29/2025 1 [place]: [employer] Soilaalijulee Kam [id number] Soilaalijulee Kam 04/29/2025 2 [place] [facility] Soilaalijulee Kam [id number] Alex Kam Notes Date Note Type Note Provider Name and Address Organization Details Recorded Time 11/09/2024 text/html Cantalicia is seen today for an routine rounding visit. Her PMH includes HTN, dementia with hallucinations, CAD, AODM, depression, GERD, and HLD. Jesus has been here since 08/2020 for LTC due to care needs unable to be met in the community. She was seen for thrush and tx with nystatin and now resolved. She is seen with a suction operator.On exam, she continues at baseline with above. Lungs clear, NAD. Seen in the activity room conversing with another resident. No concerns from nursing. Overall doing well without any concerns.Weight stable at 143 lbs this month. Rosamaria Perez NP [address] [facility], [address], [place], [address], [employer] 11/09/2024 14:07:01 12/26/2024 text/html Patient is an 89 yo female LTC resident due for routine rounding visit. Patient currently stable at baseline in NAD. PMH significant for dementia with behaviors, htn, gerd, dm Edil Barillas MD [address] [facility], [address], [place], [address], [employer] 12/26/2024 11:40:47 02/26/2025 text/html Alex is seen today for an routine rounding visit. Her PMH includes HTN, dementia with hallucinations, CAD, AODM, depression, GERD, and HLD. She has been here since 08/2020 for LTC due to care needs unable to be met in the community. Per staff she has a history of chewing tobacco and using paper and plastic to chew at times to satisfy the chewing need. A suction operator is used for this visit and patient initially co mouth pain but then states it is just a chewing need she has. No sores or open areas noted and has dentures in her mouth. She states she was told by a doctor in the past she can chew anything she wants. With interpretation it is clear she should absolutely not chew on plastic or paper due to chemicals not good for her. She is agreeable to trial some gum instead and nursing asked if family or if we can get gum for her instead. On exam, she spits out a wad of paper from her breakfast tray. 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 She can follow with dentist here. No lesions, sores, or inflammation of gums noted. Lungs clear, NAD. No other concerns from nursing. Overall doing wellWeight stable at 143 lbs this month. Rosamaria Perez NP [address] [facility], [address], [place], [address], [facility] [employer] 02/26/2025 12:05:07 04/07/2025 text/html Alex is seen today for an acute visit sp unwitnessed fall. She was found sitting on the floor by staff stating she is okay and no injuries noted. Her PMH includes HTN, dementia with hallucinations, CAD, AODM, depression, GERD, and HLD. On exam, pt states the room spins from time to time with hx of vertigo. She appears euvolemic and hydration, no injuires noted. neuros intact at baseline. BP stable today.She has a midodrine and meclizine on her DEC. Will encourage fluids. Rosamaria Perez NP [address] [facility], [address], [place], [address], [facility] [employer] 04/09/2025 08:16:53 04/29/2025 text/html Pt is a 89 yo female seen for a routine rounding visit. Her PMH includes HTN, dementia with hallucinations, CAD, AODM, depression, GERD, and HLD. lAex has been doing well since last routine visit. She did have an unwitnessed fall without any injuries, found sitting on the floor in her room. Her bp are labile and remains on midodrine and meclizine for her occassional dizziness and lower bps at times with effect. On exam, Alex is motoring in w/c in the activty room in NAD. She continues to state the room spins from time to time with hx of vertigo. She appears euvolemic and hydration. She mentions she has some irritation to her vaginal area requesting the cream which nursing administered. Weight stable at 145lbs and no concerns from nurisng. Rosamaria Perez NP [address] [facility], [address], [place], [address], [facility] [employer] 04/29/2025 11:09:44 OBGyn Episode No OBEpisode recorded.
== END 2025-07-15 18:23 | disposition home or self-care (01) ==
PROVIDERS: Emergency Provider Emergency Medicine; PCP Family Medicine
DX: T17.828A Food in other parts of respiratory tract causing other injury, initial encounter (principal); R09.89 Other specified symptoms and signs involving the circulatory and respiratory systems; Z79.899 Other long term (current) drug therapy
CPT/HCPCS: 36415; 70360; 71045; 80053; 85025; 99283; 99284

== ENCOUNTER → 2025-07-15 14:26 | Outpatient (BNV) | payer MEDICARE, MEDICAID, SELFPAY | PROVIDERS: PCP Family Medicine; Visit Provider Radiology Diagnostic Radiology | DX: I70.0 Atherosclerosis of aorta (principal); R13.10 Dysphagia, unspecified | CPT/HCPCS: 70360; 71045 ==